=== PATIENT | male | born 1950 | race Caucasian/White ===

== ENCOUNTER 2016-07-30 15:16 | Emergency (ER) | payer OTHER ==
[2016-07-30 16:25] VITALS: BP 122/76
--- NOTE | 2016-07-30 17:13 | UC ---
Back Pain HPI - HPI Summary HPI Summary: 2 days ago bent over to pick something up and fell over. Was fine for several hours, then developed worsening low back pain that is much worse after sitting in one position for a long time. Denies numbness, tingling, weakness, or trouble with bowel/bladder. No hx of back sx. Has trouble getting comfortable. Is on long-term prednisone for giant cell arteritis. - History of Current Complaint Chief Complaint: UCBackPain Stated Complaint: BACK INJURY Time Seen by Provider: 07/30/16 16:58 Hx Obtained From: Patient Onset/Duration: Gradual Onset, Lasting Days Timing: Constant Severity Initially: Mild Severity Currently: Moderate Character: Dull, Aching Aggravating: Movement, Bending, Walking Alleviating: Rest Associated Signs And Symptoms: Negative: Fever, Weakness, Numbness, Tingling, Bladder Incontinence, Bowel Incontinence, Weight Loss - Allergies/Home Medications Allergies/Adverse Reactions: Allergies Allergy/AdvReac Type Severity Reaction Status Date / Time No Known Allergies Allergy Verified 01/14/14 13:51 PMH/Surg Hx/FS Hx/Imm Hx Cardiovascular History Of: Reports: Cardiac Disorders - high cholesterol - Surgical History Surgical History: None - Family History Known Family History: Positive: Cardiac Disease - Social History Occupation: Retired Alcohol Use: None Substance Use Type: None Smoking Status (MU): Never Smoked Tobacco Review of Systems Constitutional: Negative Skin: Negative Eyes: Negative ENT: Negative Respiratory: Negative Cardiovascular: Negative Gastrointestinal: Negative Genitourinary: Negative Motor: Negative Neurovascular: Negative Musculoskeletal: Myalgia - low back pain Neurological: Negative Psychological: Negative All Other Systems Reviewed And Are Negative: Yes Physical Exam Triage Information Reviewed: Yes Appearance: Well-Appearing, Pain Distress - mild Vital Signs: Initial Vital Signs Temp 98.1 F 07/30/16 16:18 Pulse 109 07/30/16 16:18 Resp 20 07/30/16 16:18 BP 122/76 07/30/16 16:18 Pulse Ox 97 07/30/16 16:18 Vital Signs Reviewed: Yes Eye Exam: Normal Eyes: Positive: Conjunctiva Clear ENT Exam: Normal ENT: Positive: Normal ENT inspection, Hearing grossly normal, Pharynx normal, TMs normal Dental Exam: Normal Neck exam: Normal Respiratory Exam: Normal Respiratory: Positive: Chest non-tender, Lungs clear, Normal breath sounds, No respiratory distress, No accessory muscle use Cardiovascular: Positive: No Murmur, Tachycardia Musculoskeletal: Positive: Strength Intact - full strength in BLE, ROM Intact - except back Neurological: Positive: Alert Psychological Exam: Normal Skin Exam: Normal Back Pain Course/Dx - Differential Dx/Diagnosis Provider Diagnoses: Low back strain Discharge - Discharge Plan Condition: Stable Disposition: HOME Prescriptions: HYDROcodone/ACETAMIN 5-325 MG* [[place] 5-325 TAB*] 1 tab PO Q6H PRN #12 tab MDD 4 PRN Reason: Pain Naproxen Sodium [Naproxen Sodium 500 MG TAB] 500 mg PO BID #10 tab Tizanidine HCl [Zanaflex] 2 mg PO TID PRN #30 cap PRN Reason: Pain Patient Education Materials: Low Back Strain (ED) Referrals: Wyatt Willis MD [Primary Care Provider] - 4 Days Additional Instructions: I expect time and rest to help your back improve. If you are not quickly getting back to normal, please see Dr. Willis to discuss further imaging or physical therapy.
[2016-07-30] MEDS ORDERED: Naproxen TAB* 250 MG PO ONE (17:36)
--- NOTE | 2016-07-30 17:41 | RAD ---
INDICATION: 2 days of low back pain after a fall COMPARISON: None. TECHNIQUE: 5 views of the lumbar spine were obtained. FINDINGS: The vertebra are in normal alignment. No fracture is seen. Degenerative changes of the lumbar spine include loss of intervertebral disc height and marginal osteophyte formation along the lower thoracic anterior vertebral bodies.. IMPRESSION: Multilevel degenerative changes of the lumbar spine as described above.
== END 2016-07-30 18:13 | disposition home or self-care (01) ==
LOC: UCEAST 15:16
DX: S39.012A Strain of muscle, fascia and tendon of lower back, initial encounter (principal); M31.6 Other giant cell arteritis; X50.9XXA Other and unspecified overexertion or strenuous movements or postures, initial encounter; E78.00 Pure hypercholesterolemia, unspecified; Z79.52 Long term (current) use of systemic steroids
CPT/HCPCS: 72110; 99212; A9270-GY; G0463

== ENCOUNTER 2016-10-26 07:51 | Inpatient (IN) | payer OTHER ==
[2016-10-26 08:33] LABS: Hematocrit 42 % (42-52); Mean Corpuscular HGB Conc 33 g/dl (31-36); Mean Corpuscular Hemoglobin 31 pg (27-31); Mean Corpuscular Volume 92 fL (80-94); Mean Platelet Volume 9 um3 (7.4-10.4); Red Cell Distribution Width 15 % (10.5-15); White Blood Count 15.1 10^3/ul (3.5-10.8)
[2016-10-26 08:49] LABS: Albumin 3.5 g/dL (3.2-5.2); BUN/Creatinine Ratio 18.7 (8-20); C Reactive Protein 49.66 mg/L (< 5.00); Calcium 9.7 mg/dL (8.6-10.3); EGFR African American 88.4 (>60); EGFR Non-African American 68.7 (>60); Globulin 2.5 g/dL (2-4); Potassium 3.8 mmol/L (3.5-5.0); Total Bilirubin 0.9 mg/dL (0.2-1.0)
[2016-10-26] MEDS ORDERED: Iohexol 350* (CONTRAST) 500 ML MDV IV ONE (08:57)
[2016-10-26 08:58] LABS: Troponin I 0.38 ng/mL (<0.04)
--- NOTE | 2016-10-26 09:52 | RAD ---
HISTORY: Shortness of breath COMPARISONS: February 07, 2016 VIEWS:1: Single frontal portable view of the chest at 9:34 AM FINDINGS: LINES AND TUBES: None. CARDIOMEDIASTINAL SILHOUETTE: The cardiomediastinal silhouette is normal for portable technique. PLEURA: The costophrenic angles are sharp. No pleural abnormalities are noted. LUNG PARENCHYMA: The lung volumes are low. The lungs are clear accounting for the phase of respiration. ABDOMEN: The upper abdomen is clear. There is no subphrenic gas. BONES AND SOFT TISSUES: No bone or soft tissue abnormalities are noted. IMPRESSION: LOW LUNG VOLUMES. NO ACTIVE CARDIOPULMONARY DISEASE.
--- NOTE | 2016-10-26 10:34 | RAD ---
Indication: Shortness of breath, tachycardia. Contrast: Administered 84.0 ml of Contrast -- mg/ml CTA of the chest was performed without IV contrast administration. Coronal and sagittal reconstructed images were obtained. There are filling defects in both main pulmonary arteries extending to the left upper lobe, left lower lobe, right lower lobe and right upper lobe pulmonary arteries. This is consistent with multiple pulmonary embolus. The trachea and major bronchi appear patent. The lung bases demonstrate atelectasis. No pleural fluid is identified. No mediastinal or hilar adenopathy is noted. The visualized abdominal organs are otherwise unremarkable. IMPRESSION: Large pulmonary emboli are noted bilaterally with extension into the left upper, left lower, right upper and right lower lobe pulmonary arteries extending into the respective segmental arteries. Findings discussed with Dr. Billy at 10:20 AM.
[2016-10-26] MEDS ORDERED: Enoxaparin(*) 100 MG/ML SYR SUBCUT ONE (10:37)
--- NOTE | 2016-10-26 13:21 | RAD ---
HISTORY: Left lower extremity edema COMPARISONS: None relevant TECHNIQUE: Multiple transverse and longitudinal ultrasound images were obtained of the left lower extremity from the level of the common femoral vein inferiorly through to the infrapopliteal veins using grayscale, color Doppler, and spectral Doppler imaging with and without compression and with augmentation. Comparison images were obtained of the contralateral common femoral vein. FINDINGS: VEINS: The inferior extent of the left femoral vein, popliteal vein, and peroneal vein are noncompressible. There is minimal flow noted on color Doppler imaging. The remainder of the venous system of the left lower extremity is compressible throughout its course, with normal flow on color Doppler imaging and normal response to augmentation on spectral Doppler imaging. SOFT TISSUES: Unremarkable. OTHER FINDINGS: None. IMPRESSION: OCCLUSIVE AND PARTIALLY OCCLUSIVE THROMBUS OF THE INFERIOR EXTENT OF THE LEFT FEMORAL VEIN, POPLITEAL VEIN, AND PERONEAL VEIN
--- NOTE | 2016-10-26 14:36 | HP ---
CC: Dr. Wyatt Willis. * HISTORY AND PHYSICAL: DATE OF ADMISSION: 10/26/16 PRIMARY CARE PROVIDER: Dr. Wyatt Willis. ATTENDING PHYSICIAN: Dr. Maryan Romero * (dictated by Sheeba Salguero NP). CHIEF COMPLAINT: Shortness of breath. HISTORY OF PRESENT ILLNESS: Mr. Michael is a 66-year-old male with past medical history significant for giant cell arteritis, polymyalgia rheumatica, L2 to L4 lumbar fracture, hypothyroidism, hyperlipidemia, and BPH who presents to the Emergency Room with complaints of shortness of breath. Patient states that in July he injured his back resulting in lumbar fractures. He states that he has not been able to get around as well since then due to the pain. He states that on 10/15/16 he traveled to [facility] in [facility], at which time he had been fitted for a Selby brace for his lumbar fractures. The patient has also noted that for a while he has had swelling in bilateral lower extremities that he contributes to being caused from his prednisone. The patient states yesterday he went to [employer] to get some compression stockings to help with swelling in his legs. He noticed that he got very short of breath with minimal exertion. He reports that when he walked into his house that he was gasping for air and feeling short of breath. The patient reports that he had a sudden onset yesterday, but he had noticed that he had gradually been having shortness of breath over the last few weeks. The patient denies any recent fever, chills, nausea, vomiting, diarrhea, urinary symptoms. He reports some irregularity in his bowel movements and feels he needs a stool softener. The patient also reports a mild chest pressure last night that has gone this morning and again he reports bilateral lower extremity edema for the last few months, always with the left side greater than the right side. Due to the significant shortness of breath he decided to present to the emergency room for evaluation of his symptoms. While in the emergency room the patient had labs that were remarkable for leukocytosis with a white blood cell count of 15.1. He had a D-dimer greater than 1050. He had a troponin 0.38. CRP 49.66. BMP of 426. He had an EKG showing a sinus tachycardia and a rate of 31. His EKG was similar to previous EKG with the exception that that EKG with a sinus rhythm. He had a chest x-ray showing a low lung volumes and no active cardiopulmonary disease. He had a chest CTA showing large bilateral PE. The patient was given an initial dose of subcu Lovenox and the hospitalists were called to evaluate the patient for admission. PAST MEDICAL HISTORY: 1. Giant cell arteritis. 2. L2 to L4 lumbar fracture. 3. Polymyalgia rheumatica. 4. Hypothyroidism. 5. Hyperlipidemia 6. BPH. PAST SURGICAL HISTORY: No past surgeries. HOME MEDICATIONS: Include: 1. Prednisone 45 mg oral daily. 2. Levothyroxine 175 mcg oral daily. 3. Atorvastatin 40 mg oral daily at bedtime, 4. Acetaminophen 650 mg oral as needed for pain. 5. Motrin 400 mg oral as needed for pain. ALLERGIES: No known drug allergies. FAMILY HISTORY: Patient reports his father passed at age 65 from a myocardial infarction, his paternal grandfather passed at age 66 from myocardial infarction and his paternal uncle passed at age 66 from a myocardial infarction. The patient believes that he may have a family history of diabetes mellitus, but he is unsure who has it in his family. The patient denies any family history of cancer. SOCIAL HISTORY: The patient denies tobacco, alcohol or recreational drug use. Patient's sister, Cassia Michael will be his surrogate decision maker in the event he is unable to make decisions for himself. REVIEW OF SYSTEMS: I performed a 14-point review of systems. All the pertinent positives and negatives are mentioned in the history of present illness. The remaining review of systems are negative. PHYSICAL EXAMINATION GENERAL APPEARANCE: The patient is alert, pleasant, appears to be in no acute distress. VITAL SIGNS: Temperature 98.5, heart rate 125, respiratory rate 20, O2 sat 96% on 5 L via nasal cannula, blood pressure 123/85. HEENT: Normocephalic, atraumatic. Pupils are equal and reactive to light. Extraocular movements are intact. RESPIRATORY: There is no accessory muscle use and lungs are clear to auscultation bilateral. CARDIOVASCULAR: Regular rate and rhythm. S1 and S2 present. There are no murmurs, rubs or gallops heard. ABDOMEN: Soft, nontender, and nondistended. There are bowel sounds present x4. EXTREMITIES: There is trace to 1+ right lower extremity edema and 2 to 3+ left lower extremity edema. MUSCULOSKELETAL: There is no clubbing or cyanosis noted. The patient exhibits good strength in all extremities. NEUROLOGICAL: The patient is alert and oriented x4. Cranial nerves II through XII are grossly intact. PSYCHOLOGICAL: The patient is calm and cooperative. SKIN: There are no rashes or abnormalities seen. DIAGNOSTIC STUDIES/LABORATORY DATA: Sodium 140, potassium 3.8, chloride 105, CO2 27, BUN 20, creatinine 1.07, glucose 110. White blood cell count 15.1, hemoglobin 14.0, hematocrit 42, and platelets 133. D-dimer grater than 1050, troponin 0.38, CRP 49.66, BNP 426. EKG shows a sinus tachycardia with a rate of 131. There are no acute signs of ischemia noted. This EKG is similar to previous EKG from 02/07/16 with the exception of that previous EKG with sinus rhythm. 1. Chest x-ray from today. Radiologist's impression: Low lung volumes. No active cardiopulmonary disease. 2. Chest CTA from today. Radiologist's impression: Large PE bilateral with extension into left lower, right upper pulmonary artery extending into the respective segmental arteries. IMPRESSION: Mr. Michael is a 66-year-old male with past medical history significant for giant cell arteritis, L2 to 4 lumbar fracture, polymyalgia rheumatica, hypothyroidism, hyperlipidemia and benign prostatic hypertrophy who presents to the emergency room with complaints of shortness of breath and was found to have bilateral pulmonary embolus. He will be admitted on observation for pulmonary embolus. ASSESSMENT/PLAN: 1. Shortness of breath. I suspect the patient's shortness of breath is related to a pulmonary embolus. He has been started on Lovenox b.i.d. We will get an echocardiogram to evaluate for right heart strain. The patient will be monitored on telemetry, we will trend his troponins. We will also check a left lower extremity venous ultrasound as his left leg is more edematous than his right leg to eval for a DVT. It was discussed with the patient his options for oral anticoagulation of warfarin, Eliquis, or Xarelto. The patient will consider his options and will decide on an oral anticoagulant tomorrow. 2. Elevated troponins. I suspect this is secondary to demand ischemia from the patient's pulmonary embolus. We will trend his troponins and monitor him on telemetry. He is currently denying chest discomfort. 3. Left lower extremity edema. We will get a venous Doppler of the left lower extremity to evaluate for the possibility of a DVT in the left leg. 4. Giant cell arteritis and polymyalgia rheumatica. The patient will be continued on his current prednisone. He reports decreasing his prednisone down over the last month, he is currently on 45 mg daily. 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 5. Hypothyroidism. The patient will be continued on his home levothyroxine. 6. L2-4 lumbar fracture. We will provide supportive care and pain medication. The patient currently takes acetaminophen and Motrin at home for his back pain. 7. Fluids, electrolytes, nutrition. Regular diet. 8. Code status. Full code. 9. DVT prophylaxis. The patient is at highest risk and we will have Lovenox. DISPOSITION: Observation. TIME SPENT: Time for this admission was approximately 60 minutes and greater than half of that was spent with the patient discussing medications, past medical history, and the events leading up to his arrival today, and performing a physical examination. The case has been reviewed with the attending, Dr. Romero, who agrees with the plan of care. Reviewed by EMELIA FISHER 10/27/16 1156 [id number]/[facility] #: [id number] [place]
[2016-10-26] MEDS ORDERED: Magnesium Hydroxide LIQ* 30 ML UDC PO PRN (15:16)
[2016-10-26] MEDS ORDERED: Polyethylene Glycol 3350* 17 GM PACKET PO PRN (15:16)
[2016-10-26 16:09] LABS: Urine Bilirubin Negative (Negative); Urine Glucose Negative (Negative); Urine Nitrite Negative (Negative)
[2016-10-26] MEDS: Acetaminophen TAB* 325 MG PO PRN ×2 (16:44→21:41)
--- NOTE | 2016-10-26 18:03 | ECHO ---
Patient: Juany RAMOS [facility] Rec#: [id number] : 1950 Date: 10/26/2016 Age: 66y Height: 187.96 cm / 74.0 in Weight: 107.95 kg / 237.9 lbs Sex: M BSA: 2.34 Room#: 434 Admit Date#: 10/26/2016 Type: Inpatient Referring: Sheeba Landaverde NP Reading: Leena Glover MD Freight Associate: Sheeba Healy RDCS CC: Wyatt Willis MD Transthoracic Echocardiogram Indication: Pulmonary Embolism BP: 123/85 HR: 122 Rhythm: Tachycardia Findings History: HLD, back fracture. Technical Comments: The study quality is fair. The study is technically limited due to patient body habitus. Completed at 1515. Left Ventricle: The left ventricular chamber size is normal. Moderate concentric left ventricular hypertrophy is observed. There are multiple regional wall motion abnormalities. There is mildly decreased left ventricular systolic function. The estimated ejection fraction is 45-50%. There is septal flattening of the interventricular septum consistent with right ventricular volume or pressure overload. There is no consistent Doppler evidence of clinically significant diastolic dysfunction. Left Atrium: The left atrium is mildly dilated. Right Ventricle: The right ventricle is moderately dilated. The right ventricular global systolic function is moderately reduced. Right Atrium: The right atrium is mildly dilated. Aortic Valve: The aortic valve is trileaflet. The aortic valve leaflets are mildly thickened. There is no evidence of aortic regurgitation. There is no evidence of aortic stenosis. Mitral Valve: There is mitral annular calcification. The mitral valve leaflets are mildly thickened. There is mild to moderate mitral regurgitation. There is no evidence of mitral stenosis. Tricuspid Valve: The tricuspid valve leaflets are normal. There is moderate tricuspid regurgitation. The right ventricular systolic pressure is estimated at 45 mmHg. There is evidence of mild to moderate pulmonary hypertension. There is no tricuspid stenosis. Pulmonic Valve: The pulmonic valve appears normal. There is trace to mild pulmonic regurgitation. There is no pulmonic stenosis. Pericardium: There is no significant pericardial effusion. There are no signs of significant hemodynamic compromise. A pericardial fat pad is visualized. Aorta: There is mild dilatation of the ascending aorta. There is no dilatation of the aortic arch. There is moderate dilatation of the aortic root. Pulmonary Artery: The main pulmonary artery appears normal. Venous: The venous system is not well visualized. Summary: There was not any prior study for comparison. Conclusions The study is technically limited due to patient body habitus. Completed at 1515. Moderate concentric left ventricular hypertrophy is observed. There is septal flattening of the interventricular septum consistent with right ventricular volume or pressure overload. The estimated ejection fraction is 45-50%. The left atrium is mildly dilated. The right ventricle is moderately dilated. The right ventricular global systolic function is moderately reduced. The right atrium is mildly dilated. There is mild to moderate mitral regurgitation. There is moderate tricuspid regurgitation. There is evidence of mild to moderate pulmonary hypertension. There is trace to mild pulmonic regurgitation. There is mild dilatation of the ascending aorta. There is moderate dilatation of the aortic root. Measurements Name Value Normal Range RVIDd (AP) 2D 3.5 cm (0.9 - 2.6) RVDdMajor (2D) 5.3 cm (2.2 - 4.4) RAd ISD 4CH 5.5 cm (3.4 - 4.9) RA (A4C)W 4.2 cm (2.9 - 4.6) IVSd (2D) 1.6 cm (0.6 - 1) LVPWd (2D) 1.5 cm (0.6 - 1) LVIDd (2D) 4.3 cm (3.6 - 5.4) LVIDs (2D) 3.7 cm - LV FS (2D) 14 % (25 - 45) Aortic Annulus 2.9 cm (1.4 - 2.6) Ao root diameter (2D) 4.26 cm (2.1 - 3.5) Ascending Ao 3.7 cm (2.1 - 3.4) Aortic arch 3.1 cm (1.8 - 3.4) LA dimension (AP) 2D 4 cm (2.3 - 3.8) LAd ISD 4CH 5.6 cm (2.9 - 5.3) LA ISD 4CH W 4.9 cm (2.5 - 4.5) Name Value Normal Range LA ESV SP 4CH (A/L) 45 ml - LA ESV SP 2CH (A/L) 57 ml - LA ESV BP (A/L) 53 ml - LA ESV BP (A/L) index 22.76 ml/m2 - LA ESV SP 4CH (MOD) 44 ml - LA ESV SP 2CH (MOD) 57 ml - Name Value Normal Range MV E-wave Vmax 0.35 m/sec - MV deceleration time 186.57 msec - MV A-wave Vmax 0.64 m/sec - MV E:A ratio 0.55 ratio - LV septal e' Vmax 0.07 m/sec - LV lateral e' Vmax 0.1 m/sec - LV E:e' septal ratio 5 ratio - LV E:e' lateral ratio 3.5 ratio - Name Value Normal Range AV Vmax 1.12 m/sec - AV VTI 15.5 cm - AV peak gradient 5.02 mmHg - AV mean gradient 3.17 mmHg - LVOT Vmax 0.79 m/sec - LVOT VTI 11.74 cm - LVOT peak gradient 2.48 mmHg - LVOT mean gradient 1.3 mmHg - NAT Vmax 0.51 m/sec - Name Value Normal Range TR Vmax 3.05 m/sec - TR peak gradient 37 mmHg - RAP 8 mmHg - RVSP 45 mmHg - Name Value Normal Range PV Vmax 0.58 m/sec - PV peak gradient 1.34 mmHg -
--- NOTE | 2016-10-26 18:34 | ED ---
Scott Iglesias Angela, scribed for Mihai Billy MD on 10/26/16 at 0818 . Shortness of Breath - HPI Summary HPI Summary: Pt is a 66 y/o male presenting to [facility] c/o SOB with dyspnea on exertion since yesterday. Pt reports that he was gasping for air with minimal exertion, walking out of [employer]. He notes that last night he would gasp for air every 3 seconds. Pt denies fever, chills, chest pain, abd pain. He endorses traveling to [facility] 4 days ago. Pt states his ankles are swollen due to prednisone (for giant cell arteritis). Pt notes a PMHx of thyroid disease and high cholesterol. - History of Current Complaint Chief Complaint: EDDysrhythmPalp Time Seen by Provider: 10/26/16 08:04 Hx Obtained From: Patient Aggrevating Factors: Nothing Alleviating Factors: Nothing - Allergy/Home Medications Allergies/Adverse Reactions: Allergies Allergy/AdvReac Type Severity Reaction Status Date / Time No Known Allergies Allergy Verified 01/14/14 13:51 Home Medications: Home Medications Atorvastatin* [Lipitor*] 40 mg PO DAILY 10/26/16 [History Confirmed 10/26/16] Levothyroxine TAB* [Synthroid TAB*] 175 mcg PO DAILY 10/26/16 [History Confirmed 10/26/16] predniSONE TAB* [Deltasone TAB*] 45 mg PO DAILY 10/26/16 [History Confirmed ] PMH/Surg Hx/FS Hx/Imm Hx Endocrine/Hematology History: Reports: Hx Thyroid Disease Musculoskeletal History: Reports: Other Musculoskeletal History - Pt notes he has a lumbar fracture of L3 and L4 since July. Denies: Hx Rheumatoid Arthritis, Hx Osteoporosis, Hx Scoliosis Neurological History: Denies: Hx Headaches Infectious Disease History: No Infectious Disease History: Denies: Traveled Outside the [place] in Last 30 Days - Family History Known Family History: Positive: Cardiac Disease - Social History Alcohol Use: None Substance Use Type: Reports: None Smoking Status (MU): Never Smoked Tobacco Review of Systems Negative: Fever, Chills Positive: Shortness Of Breath All Other Systems Reviewed And Are Negative: Yes Physical Exam - Summary Physical Exam Summary: VITAL SIGNS: Reviewed. GENERAL: Patient is a well-developed and nourished male who is lying comfortable in the stretcher. Patient seems to be very dry. HEAD AND FACE: No signs of trauma. No ecchymosis, hematomas or skull depressions. No sinus tenderness. EYES: PERRLA, EOMI x 2, No injected conjunctiva, no nystagmus. EARS: Hearing grossly intact. Ear canals and tympanic membranes are within normal limits. MOUTH: Oropharynx within normal limits. Pt has a dry oral mucosa. NECK: Supple, trachea is midline, no adenopathy, no JVD, no carotid bruit, no c- spine tenderness, neck with full ROM. CHEST: Symmetric, no tenderness at palpation LUNGS: Clear to auscultation bilaterally. No wheezing or crackles. CVS: Pt is tachycardic, S1 and S2 present, no murmurs or gallops appreciated. ABDOMEN: Soft, non-tender. No signs of distention. No rebound no guarding, and no masses palpated. Bowel sounds are normal. EXTREMITIES: FROM in all major joints, no cyanosis or clubbing. Pt has bilateral ankle edema 2+. NEURO: Alert and oriented x 3. No acute neurological deficits. Speech is normal and follows commands. SKIN: Dry and warm Triage Information Reviewed: Yes Vital Signs On Initial Exam: Initial Vitals Temp Pulse Resp Pulse Ox 98.8 F 135 20 94 10/26/16 07:53 10/26/16 07:53 10/26/16 07:53 10/26/16 07:53 Vital Signs Reviewed: Yes - [place] Coma Scale Coma Scale Total: 15 Diagnostics - Vital Signs Vital Signs Temp Pulse Resp BP Pulse Ox 10/26/16 07:56 98.5 F 133 20 90/75 89 10/26/16 07:53 98.8 F 135 20 94 - Laboratory Result Diagrams: 10/26/16 08:20 10/26/16 08:20 Lab Statement: Any lab studies that have been ordered have been reviewed, and results considered in the medical decision making process. - Radiology Chest XR Xray Interpretation: No Acute Changes - IMPRESSION: Low lung volumes. No active cardiopulmonary disease. Radiology Interpretation Completed By: Radiologist - CT CTA Chest CT Interpretation: Positive (See Comments) - IMPRESSION: Large pulmonary emboli are noted bilaterally with extension into the left upper, left lower, right upper and right lower lobe pulmonary arteries extending into the respective segmental arteries. CT Interpretation Completed By: Radiologist - EKG 7:59 Cardiac Rate: Tachycardia - 131 bpm EKG Rhythm: Sinus Rhythm ST Segment: Normal EKG Interpretation: No ST elevations Course/Dx - Course Course Of Treatment: Pt is a 66 y/o male presenting to [facility] c/o SOB with dyspnea on exertion since yesterday. Pt reports that he was gasping for air with minimal exertion, walking out of [employer]. He notes that last night he would gasp for air every 3 seconds. Pt denies fever, chills, chest pain, abd pain. He endorses traveling to [facility] 4 days ago. Pt states his ankles are swollen due to prednisone (for giant cell arteritis). Pt notes a PMHx of thyroid disease and high cholesterol. Test results without any significant abnormalities , except for WBC of 15.1, platelets of 133, no band, D-dimer of more than 1050, glucose of 110, troponin of 0.38, CRP 49.6, BNP of 423. Pt's situation is of no acute pathology. I decided to do a CTA dince the pt is hypoxic, hypotensive, and we need to rule out a PE. CTA results show a large pulmonary emboli are noted bilaterally with extension into the left upper, left lower, right upper and right lower lobe pulmonary arteries extending into the respective segmental arteries. EKG shows sinus tachycardia at [address] elevations. In the ED course the pt is stable and was hydrated. He was given Lovenox to treat the pulmonary emboli. The elevated troponin is likely due to PE, however we still have to rule out acute coronary syndrome. I discussed the case with Dr. Romero from the hospitalist service who accepted the pt for admission. The pt is feeling better, however he is still tachycardic at rate of 113. Otherwise, the pt is stable. - Diagnoses Provider Diagnoses: Pulmonary embolism, Increased troponin, Rule out acute coronary syndrome - Physician Notifications Discussed Care of Patient With: Maryan Romero Time Discussed With Above Provider: 10:34 Instructed by Provider To: Other - Discussed the pt's case with Dr. Romero. She will admit the pt. Discharge - Discharge Plan Condition: Stable Disposition: ADMITTED TO [facility] The documentation as recorded by the Scott mc Angela accurately reflects the service I personally performed and the decisions made by me, Mihai Billy MD.
[2016-10-26] MEDS: Enoxaparin(*) 150 MG/ML 1 ML SYRINGE SUBCUT SCH (21:41)
[2016-10-27] MEDS: Acetaminophen TAB* 325 MG PO PRN (03:46)
[2016-10-27] MEDS ORDERED: oxyCODONE TAB* 5 MG TAB PO PRN (03:57)
[2016-10-27 05:14] LABS: Hematocrit 40 % (42-52); Hemoglobin 13.4 g/dl (14.0-18.0); Mean Corpuscular HGB Conc 33 g/dl (31-36); Mean Corpuscular Hemoglobin 31 pg (27-31); Mean Corpuscular Volume 93 fL (80-94); Mean Platelet Volume 8 um3 (7.4-10.4); Red Blood Count 4.36 10^6/ul (4.0-5.4); Red Cell Distribution Width 16 % (10.5-15); White Blood Count 9.4 10^3/ul (3.5-10.8)
[2016-10-27 05:16] LABS: Add Diff/Slide Review? Slide Review Added; Comments Flag Yes
[2016-10-27] MEDS: Levothyroxine TAB* 175 MCG TAB PO SCH (06:22)
[2016-10-27] MEDS: Atorvastatin* 40 MG TAB PO SCH (08:54)
[2016-10-27] MEDS: predniSONE TAB* 20 MG PO SCH (08:54)
[2016-10-27] MEDS: predniSONE TAB* 5 MG PO SCH (08:54)
[2016-10-27] MEDS: Enoxaparin(*) 150 MG/ML 1 ML SYRINGE SUBCUT SCH (08:54)
--- NOTE | 2016-10-27 11:26 | PN ---
Subjective Date of Service: 10/27/16 Interval History: Patient seen this morning. No SOB at rest, felt that he had to take a few extra breaths when going to the bathroom and back. Did endorse waking up gasping for breath a number of times overnight and this AM, O2 sats have been stable on 2L NC. Had long discussion with patient about medication options, prognosis, length of therapy. Patient had a number of questions, all of which were answered. Family History: Unchanged from Admission Social History: Unchanged from Admission Past Medical History: Unchanged from Admission Objective Active Medications: Acetaminophen (Tylenol Tab*) 650 mg PO Q4H PRN Atorvastatin Calcium (Lipitor*) 40 mg PO DAILY [facility]DA Docusate Sodium (Colace Cap*) 100 mg PO BID PRN Enoxaparin Sodium (Lovenox(*)) 110 mg SUBCUT BID MAYDA Levothyroxine Sodium (Synthroid Tab*) 175 mcg PO 0600 [facility]DA Magnesium Hydroxide (Milk Of Magnesia Liq*) 30 ml PO Q6H PRN Oxycodone HCl (Roxycodone Tab*) 5 mg PO Q4H PRN Polyethylene Glycol/Electrolytes (Miralax*) 17 gm PO DAILY PRN Prednisone (Deltasone Tab*) 40 mg PO DAILY MAYDA Prednisone (Deltasone Tab*) 5 mg PO DAILY [facility]DA Vital Signs 10/26/16 10/26/16 10/26/16 11:30 11:45 12:00 Temperature Pulse Rate 123 125 123 Respiratory 19 18 21 Rate Blood Pressure 106/63 123/77 110/70 (mmHg) O2 Sat by Pulse 97 96 95 Oximetry 10/26/16 10/26/16 10/26/16 13:00 13:17 13:53 Temperature 97.2 F 97.2 F Pulse Rate 126 125 125 Respiratory 20 20 Rate Blood Pressure 124/91 124/91 (mmHg) O2 Sat by Pulse 94 94 95 Oximetry 10/27/16 07:40 Temperature 97.4 F Pulse Rate 101 Respiratory 16 Rate Blood Pressure 123/79 (mmHg) O2 Sat by Pulse 94 Oximetry Oxygen Devices in Use Now: Nasal Cannula - 2L Appearance: Middle-aged, M, laying in bed in NAD Eyes: No Scleral Icterus Ears/Nose/Mouth/Throat: Mucous Membranes Moist Neck: NL Appearance and Movements; NL JVP Respiratory: Symmetrical Chest Expansion and Respiratory Effort, - - Trace scattered wheezing, otherwise clear Cardiovascular: NL Sounds; No Murmurs; No JVD, - - Tachycardia Abdominal: NL Sounds; No Tenderness; No Distention Lymphatic: No Cervical Adenopathy Extremities: - - LLE edema Skin: No Rash or Ulcers Neurological: Alert and Oriented x 3 Result Diagrams: 10/27/16 04:54 10/26/16 08:20 Assess/Plan/Problems-Billing Assessment: B/L pulmonary emboli, LLE DVT in a 66 yo M with hx of GCA, PMR, L2-L4 lumbar fx , hypothyroidism, BPH - Patient Problems (1) Pulmonary emboli Current Visit: Yes Comment: B/L, LLE DVT. Echo shows evidence of R heart strain, has mild troponin elevation. Discussed options with the patient and will start Xarelto this evening. Continue O2 as needed, wean. Will ambulate throughout the day today. (2) Gasping for breath Current Visit: Yes Comment: Happens while sleeping. Will order overnight pulse ox to evaluate for possible underlying apnea. (3) Giant cell arteritis Current Visit: Yes Comment: Continue outpatient Prednisone 45 mg daily (4) Hypothyroidism Current Visit: Yes Comment: Continue home synthroid (5) DVT prophylaxis Current Visit: Yes Comment: Xarelto Counseling and/or Coordination of Care Minutes: >50 minutes with over 50% spent on counseling and coordination of care
[2016-10-27] MEDS: Rivaroxaban TAB(*) 15 MG PO SCH (22:01)
[2016-10-28] MEDS: Levothyroxine TAB* 175 MCG TAB PO SCH (05:05)
[2016-10-28] MEDS: Docusate CAP* 100 MG PO PRN (09:02)
[2016-10-28] MEDS: predniSONE TAB* 20 MG PO SCH (09:03)
[2016-10-28] MEDS: predniSONE TAB* 5 MG PO SCH (09:03)
[2016-10-28] MEDS: Atorvastatin* 40 MG TAB PO SCH (09:05)
[2016-10-28] MEDS: Acetaminophen TAB* 325 MG PO PRN (09:07)
[2016-10-28] MEDS: Rivaroxaban TAB(*) 15 MG PO SCH ×2 (09:07→20:14)
--- NOTE | 2016-10-28 11:53 | PN ---
Subjective Date of Service: 10/28/16 Interval History: Patient seen this morning. Feeling better today, denied any sensation of gasping for air while sleeping but did state he was interrupted a number of times with the overnight pulse ox. Feels that he has difficult getting from sitting to standing due to back pain but denies much SOB with ambulation. Family History: Unchanged from Admission Social History: Unchanged from Admission Past Medical History: Unchanged from Admission Objective Active Medications: Acetaminophen (Tylenol Tab*) 650 mg PO Q4H PRN Atorvastatin Calcium (Lipitor*) 40 mg PO DAILY MAYDA Docusate Sodium (Colace Cap*) 100 mg PO BID PRN Levothyroxine Sodium (Synthroid Tab*) 175 mcg PO 0600 MAYDA Magnesium Hydroxide (Milk Of Magnesia Liq*) 30 ml PO Q6H PRN Oxycodone HCl (Roxycodone Tab*) 5 mg PO Q4H PRN Polyethylene Glycol/Electrolytes (Miralax*) 17 gm PO DAILY PRN Prednisone (Deltasone Tab*) 40 mg PO DAILY MAYDA Prednisone (Deltasone Tab*) 5 mg PO DAILY MAYDA Rivaroxaban (Xarelto(*)) 15 mg PO BID [facility] Vital Signs 10/27/16 10/27/16 10/27/16 15:34 20:00 20:04 Temperature 98.0 F 97.6 F Pulse Rate 105 110 Respiratory 24 16 16 Rate Blood Pressure 102/80 108/77 (mmHg) O2 Sat by Pulse 92 90 Oximetry 10/27/16 10/28/16 10/28/16 22:05 00:02 03:48 Temperature 97.3 F 97.9 F Pulse Rate 106 108 Respiratory 16 20 Rate Blood Pressure 134/88 145/95 (mmHg) O2 Sat by Pulse 88 95 94 Oximetry 10/28/16 10/28/16 06:50 07:33 Temperature 97.9 F 97.5 F Pulse Rate 108 93 Respiratory 20 16 Rate Blood Pressure 136/62 134/72 (mmHg) O2 Sat by Pulse 98 96 Oximetry Oxygen Devices in Use Now: Nasal Cannula - 2L Appearance: Middle-aged, M, sitting in chair in NAD Eyes: No Scleral Icterus Ears/Nose/Mouth/Throat: Mucous Membranes Moist Neck: NL Appearance and Movements; NL JVP Respiratory: Symmetrical Chest Expansion and Respiratory Effort, Clear to Auscultation Cardiovascular: NL Sounds; No Murmurs; No JVD, RRR Abdominal: NL Sounds; No Tenderness; No Distention Lymphatic: No Cervical Adenopathy Extremities: - - LLE edema Skin: No Rash or Ulcers Neurological: Alert and Oriented x 3 Result Diagrams: 10/27/16 04:54 10/26/16 08:20 Assess/Plan/Problems-Billing Assessment: B/L pulmonary emboli, LLE DVT in a 66 yo M with hx of GCA, PMR, L2-L4 lumbar fx , hypothyroidism, BPH - Patient Problems (1) Pulmonary emboli Current Visit: Yes Comment: B/L, LLE DVT. Echo shows evidence of R heart strain, has mild troponin elevation. Continue Xarelto. HRs have been gradually improving. Will ambulate again today on/off O2 and monitor HR. (2) Gasping for breath Current Visit: Yes Comment: Patient reports improvement in symptoms with O2 overnight, however did have desaturations. May have some sleep apnea, should get outpatient sleep study. Will plan to discharge with nocturnal O2 (3) Giant cell arteritis Current Visit: Yes Comment: Continue outpatient Prednisone 45 mg daily (4) Hypothyroidism Current Visit: Yes Comment: Continue home synthroid (5) DVT prophylaxis Current Visit: Yes Comment: Xarelto
[2016-10-29] MEDS: Levothyroxine TAB* 175 MCG TAB PO SCH (06:51)
[2016-10-29] MEDS: predniSONE TAB* 20 MG PO SCH (08:02)
[2016-10-29] MEDS: predniSONE TAB* 5 MG PO SCH (08:03)
[2016-10-29] MEDS: Rivaroxaban TAB(*) 15 MG PO SCH (08:03)
[2016-10-29] MEDS: Atorvastatin* 40 MG TAB PO SCH (08:03)
[2016-10-29] MEDS: Docusate CAP* 100 MG PO PRN (08:04)
--- NOTE | 2016-10-29 10:56 | PN ---
Subjective Date of Service: 10/29/16 Interval History: Patient seen this morning. Feeling well. Ambulated on the stairs last night with no issues, maintained O2 sats on RA. No air hunger overnight. On exam, RRR, s1 and s2 present, no m/g/r, lungs CTA B/L, no w/r/r Will discharge patient today on Xarelto. All questions answered. Has PCP f/u today. Family History: Unchanged from Admission Social History: Unchanged from Admission Past Medical History: Unchanged from Admission Objective Active Medications: Acetaminophen (Tylenol Tab*) 650 mg PO Q4H PRN PRN Reason: FEVER/PAIN Last Admin: 10/27/16 03:46 Dose: 650 mg Atorvastatin Calcium (Lipitor*) 40 mg PO DAILY [facility] Last Admin: 10/29/16 08:03 Dose: 40 mg Docusate Sodium (Colace Cap*) 100 mg PO BID PRN PRN Reason: CONSTIPATION Last Admin: 10/29/16 08:04 Dose: 100 mg Levothyroxine Sodium (Synthroid Tab*) 175 mcg PO 0600 [facility] Last Admin: 10/29/16 06:51 Dose: 175 mcg Magnesium Hydroxide (Milk Of Magnesia Liq*) 30 ml PO Q6H PRN PRN Reason: CONSTIPATION Oxycodone HCl (Roxycodone Tab*) 5 mg PO Q4H PRN PRN Reason: PAIN - MODERATE Polyethylene Glycol/Electrolytes (Miralax*) 17 gm PO DAILY PRN PRN Reason: CONSTIPATION Prednisone (Deltasone Tab*) 40 mg PO DAILY [facility] Last Admin: 10/29/16 08:02 Dose: 40 mg Prednisone (Deltasone Tab*) 5 mg PO DAILY [facility] Last Admin: 10/29/16 08:03 Dose: 5 mg Rivaroxaban (Xarelto(*)) 15 mg PO BID [facility] Last Admin: 10/29/16 08:03 Dose: 15 mg Vital Signs 10/28/16 10/28/16 10/28/16 11:16 15:40 19:09 Temperature 98.3 F 97.3 F 97.9 F Pulse Rate 96 102 103 Respiratory 20 16 24 Rate Blood Pressure 104/80 122/84 137/87 (mmHg) O2 Sat by Pulse 95 95 96 Oximetry 10/28/16 10/28/16 10/29/16 20:00 23:41 02:39 Temperature 97.9 F 97.4 F Pulse Rate 93 84 Respiratory 24 16 20 Rate Blood Pressure 126/65 141/78 (mmHg) O2 Sat by Pulse 96 93 Oximetry 10/29/16 07:27 Temperature 97.4 F Pulse Rate 86 Respiratory 20 Rate Blood Pressure 139/83 (mmHg) O2 Sat by Pulse 95 Oximetry Oxygen Devices in Use Now: Nasal Cannula - 2L Result Diagrams: 10/27/16 04:54 10/26/16 08:20 Assess/Plan/Problems-Billing Assessment: B/L pulmonary emboli, LLE DVT in a 66 yo M with hx of GCA, PMR, L2-L4 lumbar fx , hypothyroidism, BPH - Patient Problems (1) Pulmonary emboli Current Visit: Yes Comment: B/L, LLE DVT. Echo shows evidence of R heart strain, has mild troponin elevation. Continue Xarelto. HRs have been gradually improving. Will ambulate again today on/off O2 and monitor HR. (2) Gasping for breath Current Visit: Yes Comment: Patient reports improvement in symptoms with O2 overnight, however did have desaturations. May have some sleep apnea, should get outpatient sleep study. Will plan to discharge with nocturnal O2 (3) Giant cell arteritis Current Visit: Yes Comment: Continue outpatient Prednisone 45 mg daily (4) Hypothyroidism Current Visit: Yes Comment: Continue home synthroid (5) DVT prophylaxis Current Visit: Yes Comment: Xarelto
[2016-10-29 12:04] VITALS: BP 111/72
--- NOTE | 2016-10-30 02:34 | DS ---
CC: Dr. Willis * DISCHARGE SUMMARY: DATE OF ADMISSION: 10/26/16 DATE OF DISCHARGE: 10/29/16 PRIMARY CARE PHYSICIAN: Dr. Willis. PRINCIPAL DISCHARGE DIAGNOSIS: Pulmonary embolism bilaterally, left lower extremity deep venous thrombosis. SECONDARY DIAGNOSES: 1. Giant cell arteritis, on prednisone. 2. L2-L4 lumbar fracture. 3. Hypothyroidism. 4. Hyperlipidemia. 5. Benign prostatic hyperplasia. DISCHARGE MEDICATION REGIMEN: 1. Xarelto 15 mg by mouth 2 times daily for 3 weeks and then 20 mg by mouth daily. 2. Atorvastatin 40 mg by mouth daily. 3. Synthroid 175 mcg by mouth daily. 4. Prednisone 45 mg by mouth daily. STUDIES DONE DURING HOSPITALIZATION: CT of the chest, impression: Large pulmonary emboli are noted bilaterally with extension into the left upper and left lower, right upper and right lower pulmonary arteries extending into the respective segmental arteries. Chest x-ray, impression: Low lung volumes. No active cardiopulmonary disease. Transthoracic echocardiogram, conclusion: This study is technically limited due to the patient's body habitus. Moderate concentric LVH is observed. There is septal flattening of the interventricular septum consistent with ventricular volume or pressure overload. Estimated ejection fraction of 45% to 50%. Left atrium is mildly dilated. The right ventricle is moderately dilated. Right ventricular systolic function is moderately reduced, right atrium is mildly dilated, mild-to- moderate right mitral regurgitation, moderate tricuspid regurgitation, evidence of [id number] pulmonary hypertension, trace to mild pulmonic regurgitation, mild dilatation of the ascending aorta, moderate dilatation of the aortic root. Left lower extremity Doppler, impression: Partially occlusive thrombus of the inferior extent of the left femoral vein, popliteal vein, and peroneal vein. HISTORY OF PRESENT ILLNESS/ HOSPITAL SUMMARY: Please see the full history and physical by Sheeba Dickey NP for full details. Briefly, Mr. Michael is a 66-year-old man with a past medical history as above, who presented to the hospital with progressive shortness of breath and left lower extremity swelling. It seems that the swelling has been going on for some time; however, the shortness of breath seemed to progress significantly over the days prior to admission. As noted above, the patient was diagnosed with bilateral pulmonary emboli and left lower extremity DVT. The patient had evidence of heart strain on his echocardiogram and had a mild troponin elevation which peaked at 0.38. The patient also had a B-natriuretic peptide of 423. The patient was significantly tachycardic on admission in the 130s; however, he did not require any more than 2 L of oxygen, which we were eventually being able to be weaned off. The patient was treated initially with subcu Lovenox and then the decision was made to switch to oral Xarelto. The patient was monitored in the hospital for a few additional days until his tachycardia improved and his oxygen was able to be weaned off. He did not require supplemental oxygen with ambulation; however , the patient did report some symptoms of gasping for air on his first night here in the hospital. Overnight pulse oximetry demonstrated some overnight desaturations. He will be sent home with home oxygen and should be referred for a sleep study. The patient had a number of questions about his anticoagulation and the duration. I stated that he should follow up with Dr. Willis and if the patient prefers to see a setter induction heating equipment, I am sure Dr. Willis will be happy to refer him to someone. TIME SPENT: Total time spent on this discharge, 50 minutes. This is a summary of the hospitalization. Please see the full medical record for further details. [id number] #: [id number] MTDD
== END 2016-10-29 13:42 | disposition home or self-care (01) | DRG 176 ==
LOC: ED 07:51 → MEDTELE 11:24 → OBSVTOIN 10-27 14:25
PROVIDERS: ADMIT Hospitalist; ATTEND Hospitalist
DX: I26.99 Other pulmonary embolism without acute cor pulmonale (principal); S32.029A Unspecified fracture of second lumbar vertebra, initial encounter for closed fracture; I27.2 Other secondary pulmonary hypertension; I95.9 Hypotension, unspecified; M31.5 Giant cell arteritis with polymyalgia rheumatica; M31.6 Other giant cell arteritis; S32.039A Unspecified fracture of third lumbar vertebra, initial encounter for closed fracture; S32.049A Unspecified fracture of fourth lumbar vertebra, initial encounter for closed fracture; I82.412 Acute embolism and thrombosis of left femoral vein; I82.432 Acute embolism and thrombosis of left popliteal vein; I82.492 Acute embolism and thrombosis of other specified deep vein of left lower extremity; E78.00 Pure hypercholesterolemia, unspecified; R40.2412 Glasgow coma scale score 13-15, at arrival to emergency department; R09.02 Hypoxemia; E03.9 Hypothyroidism, unspecified; E78.5 Hyperlipidemia, unspecified; N40.0 Benign prostatic hyperplasia without lower urinary tract symptoms; I77.819 Aortic ectasia, unspecified site; R74.8 Abnormal levels of other serum enzymes; R09.89 Other specified symptoms and signs involving the circulatory and respiratory systems; I08.1 Rheumatic disorders of both mitral and tricuspid valves; I37.1 Nonrheumatic pulmonary valve insufficiency; Z99.81 Dependence on supplemental oxygen; Z82.49 Family history of ischemic heart disease and other diseases of the circulatory system; Z83.3 Family history of diabetes mellitus; Z79.01 Long term (current) use of anticoagulants; Z79.52 Long term (current) use of systemic steroids
CPT/HCPCS: 36415; 71010; 71275; 80053; 81003; 82550; 82553; 83605; 83880; 84484; 85025; 85379; 85610; 85730; 86140; 87040; 93005; 93306; 94760; 94762; A9270-GY; G0378; J1650; J7512; Q9967

== ENCOUNTER 2017-02-13 16:04 | Inpatient (IN) | payer OTHER ==
[2017-02-13] MEDS ORDERED: Morphine INJ* 4 MG/ML 1 ML CARPUJECT IV ONE (16:30)
[2017-02-13] MEDS ORDERED: Orphenadrine Citrate IV* 30 MG/ML 2 ML VIAL IV ONE (16:30)
[2017-02-13] MEDS ORDERED: Dexamethasone IV* 4 MG/ML 1 ML (4 MG) IV SLOW PU ONE (16:30)
--- NOTE | 2017-02-13 17:59 | RAD ---
Indication: Back pain. CT of the lumbar spine was obtained in the axial plane. Sagittal and coronal reconstructed images were obtained. MRI dated November 30, 2016 was reviewed. There is diffuse osteopenia noted. At L5-S1 there is degenerative disc disease present. Diffuse osteopenia is noted. Facet arthropathy is noted. There is compression fracture of the L4 vertebra. This is approximately 50-75%. This is similar to that present on November 28, 2016. There is mild retropulsion of the superior posterior endplate with mild to moderate spinal stenosis. No definite foraminal stenosis is noted. Diffuse osteopenia is noted. Mild compression of the L3 vertebra is noted of approximately 25%. This is not significantly changed since previous exam. Mild compression superior endplate of L2 is noted. This has similar configuration to that seen previously. Mild compression inferior endplate of L1 which is also unchanged. IMPRESSION: 50-75% compression of L4, 25% compression of L3, superior endplate of L2 and 20% compression inferior endplate L1. There may be some mild retropulsion of the endplates at L4 superiorly however this is unchanged from previous exam. Mild spinal stenosis is noted. No new fractures are noted. Diffuse osteopenia. At L3-L4 there is broad-based protrusion present. No central or foraminal stenosis is noted. No fracture is identified. Mild compression of L3 is noted. At L1-L2 mild compression inferior endplate of L1 superior endplate of L2 which is similar to that seen on prior MRI.
[2017-02-13] MEDS ORDERED: fentaNYL* 50 MCG/ML 2 ML VIAL (100 MCG VIAL) IV SLOW PU ONE (18:27)
[2017-02-13 19:12] LABS: Hematocrit 41 % (42-52); Hemoglobin 13.6 g/dl (14.0-18.0); Mean Corpuscular HGB Conc 33 g/dl (31-36); Mean Corpuscular Hemoglobin 30 pg (27-31); Mean Corpuscular Volume 91 fL (80-94); Mean Platelet Volume 8 um3 (7.4-10.4); Red Blood Count 4.55 10^6/ul (4.0-5.4); Red Cell Distribution Width 16 % (10.5-15); White Blood Count 11.6 10^3/ul (3.5-10.8)
[2017-02-13 19:37] LABS: Urine Bilirubin Negative (Negative); Urine Glucose Negative (Negative); Urine Nitrite Negative (Negative)
[2017-02-13] MEDS ORDERED: Melatonin (NF) 3 MG TAB PO PRN (20:14)
[2017-02-13] MEDS ORDERED: oxyCODONE TAB* 5 MG TAB PO PRN (20:14)
[2017-02-13] MEDS ORDERED: traMADol TAB* 50 MG PO PRN (20:14)
[2017-02-13] MEDS ORDERED: Ondansetron INJ* 2 MG/ML VIAL IV PRN (20:14)
--- NOTE | 2017-02-13 22:25 | HP ---
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 From his lob back pain standpoint, he was doing reasonably well for the past month. Unfortunately today he was at home walking out to his car without his cane, stumbled and fell landing on his R side and experiencing immediate severe low back pain and R posterior shoulder pain. He denies head injury or LOC. There were no prodromal symptoms, specifically no chest pain, SOB , palpitations, or focal W/N/T. He was unable to get up and required EMS to come for transport to [facility]. Post-fall he denies any W/N/T or other new symptoms. PMedHx saddle PE 10/2016 giant cell arteritis w/ polymyalgia rheumatica L2-L4 compression FXs w/ chronic LBP hypothyroidism HLD BPH Ambulatory Orders Atorvastatin* [Lipitor 40 MG*] 40 mg PO DAILY 10/26/16 Levothyroxine TAB* [Synthroid TAB*] 135 mcg PO DAILY 10/26/16 predniSONE TAB* [Deltasone TAB*] 20 mg PO DAILY 10/26/16 Rivaroxaban TAB(*) [Xarelto 20 mg] 20 mg PO DAILY #30 tab 10/29/16 Allergies No Known Allergies Allergy (Verified 02/13/17 16:12) PSurgHx denies SocHx: no tobacco, alcohol, or recreational drugs; single, lives alone; [employer]; full code status FamHx: positive for CAD ROS: as above, otherwise reviewed and all were negative vitals: Vital Signs Temp 37.1 C 02/13/17 16:10 Pulse 95 02/13/17 18:00 Resp 18 02/13/17 19:23 BP 152/100 02/13/17 20:32 Pulse Ox 91 02/13/17 18:00 Intake & Output 02/12/17 02/13/17 02/13/17 23:59 11:59 23:59 Weight 103.873 kg Constitutional: NAD, normally developed, obese white male HEENM: atraumatic; sclera/conjunctiva: anicteric/clear; hearing: clinically intact; oropharynx: clear, mucosa moist Neck: soft tissue: non-tender; thyroid: normal Pulmonary: clear to auscultation bilaterally, good aeration, no accessory muscle use CV: RR/RR, normal S1S2, no carotid bruit, no jugular venous distention, 2+ B DP/ PT, 3+ BLE edema Abdominal: soft, non-distended, non-tender, no rebound/guarding/rigidity, normoactive bowel sounds, no hepatosplenomegaly or masses, no costovertebral angle tenderness Musculoskeletal: general: grossly intact, no palpable tenderness of LE; tender lumbar paraspinal muscles, unable to lift either leg from bed without severe low back pain, able to move ankles/feet/toes without issue Integumental: small abrasion R elbow lateral epicondyle Neurological sensory crude touch: intact BLE Psychiatric orientation: AA&O to PPS affect: calm mood: cooperative eye contact: fair content: reliable responses: timely insight: fair to good Testing: Lab Results 02/13/17 02/13/17 02/13/17 Range/Units 18:47 18:47 19:26 WBC 11.6 H (3.5-10.8) 10^3/ul RBC 4.55 (4.0-5.4) 10^6/ul Hgb 13.6 L (14.0-18.0) g/dl Hct 41 L (42-52) % MCV 91 (80-94) fL MCH 30 (27-31) pg MCHC 33 (31-36) g/dl RDW 16 H (10.5-15) % Plt Count 273 (150-450) 10^3/ul MPV 8 (7.4-10.4) um3 Neut % (Auto) 89.7 H (38-83) % Lymph % (Auto) 6.7 L (25-47) % [place] % (Auto) 3.4 (1-9) % Eos % (Auto) 0 (0-6) % Baso % (Auto) 0.2 (0-2) % Absolute Neuts (auto) 10.4 H (1.5-7.7) 10^3/ul Absolute Lymphs (auto) 0.8 L (1.0-4.8) 10^3/ul Absolute Monos (auto) 0.4 (0-0.8) 10^3/ul Absolute Eos (auto) 0 (0-0.6) 10^3/ul Absolute Basos (auto) 0 (0-0.2) 10^3/ul Absolute Nucleated RBC 0.02 10^3/ul Nucleated RBC % 0.2 C-Reactive Protein 15.55 H (< 5.00) mg/L Urine Color Straw Urine Appearance Clear Urine pH 9.0 (5-9) Ur Specific [place] 1.008 L (1.010-1.030) Urine Protein Negative (Negative) Urine Ketones Negative (Negative) Urine Blood Negative (Negative) Urine Nitrate Negative (Negative) Urine Bilirubin Negative (Negative) Urine Urobilinogen Negative (Negative) Ur Leukocyte Esterase Negative (Negative) Urine Glucose Negative (Negative) ECG, personally reviewed: NSR rate 99, inverted T in III CT L-spine WO: IMPRESSION: 50-75% compression of L4, 25% compression of L3, superior endplate of L2 and 20% compression inferior endplate L1. There may be some mild retropulsion of the endplates at L4 superiorly however this is unchanged from previous exam. Mild spinal stenosis is noted. No new fractures are noted. Diffuse osteopenia. At L3-L4 there is broad-based protrusion present. No central or foraminal stenosis is noted. No fracture is identified. Mild compression of L3 is noted. At L1-L2 mild compression inferior endplate of L1 superior endplate of L2 which is similar to that seen on prior MRI. Impression: 66M HX chronic LBP related to compression FXs 2nd fall over the summer now being admitted observation for intractable LBP s/p new mechanical fall w/o new radiologic findings DIAGNOSIS & PLAN Primary intractable LBP s/p mechanical fall : HX L2-L4 compression FXs w/ chronic LBP : was offered IV steroid, but refused; continue PO prednisone : pain control : PT/OT evaluations : supportive care Secondary saddle PE 10/2016 : continue rivaroxaban giant cell arteritis w/ polymyalgia rheumatica : continue prednisone PO hypothyroidism : continue levothyroxine HLD : continue atorvastatin Admission Rational: observation for intractable LBP DVTp: rivaroxaban Code Status: full HCP: sisterCassia
[2017-02-13] MEDS: fentaNYL* 50 MCG/ML 2 ML VIAL (100 MCG VIAL) IV SLOW PU PRN (23:17)
[2017-02-13] MEDS: Docusate CAP* 100 MG PO SCH (23:21)
[2017-02-14] MEDS ORDERED: Benzonatate CAP* 100 MG ONE (00:44)
[2017-02-14] MEDS: Rivaroxaban TAB(*) 20 MG TAB PO SCH ×2 (00:45→17:42)
[2017-02-14] MEDS: Benzonatate CAP* 100 MG PO PRN ×3 (00:45→23:43)
[2017-02-14] MEDS: Levothyroxine TAB* 25 MCG TAB PO SCH (06:01)
[2017-02-14] MEDS: Levothyroxine TAB* 112 MCG TAB PO SCH (06:02)
[2017-02-14] MEDS: Omeprazole CAP* 20 MG PO SCH (06:02)
--- NOTE | 2017-02-14 08:32 | ED ---
Scott Iglesias Angela, scribed for Mihai Billy MD on 02/13/17 at 1619 . Adult Trauma - HPI Summary HPI Summary: This pt is a 66 y/o male presenting to [facility] via EMS c/o back pain s/p mechanical fall today. Pt reports he was walking around without his cane and he tripped over his own feet and fell onto his right side. He denies head strike or LOC. Pt states his pain is from the shoulder blades down to the his lower back. He denies numbness, weakness or tingling in LE, urinary or bowel incontinence. Pt notes he never had any pain to the touch before, and now does. He notes he had 5 lumbar fractures that were healing. Pt would like an MRI and states he does not want XRs because "they are a waste of time and money." - History of Current Complaint Chief Complaint: EDBackInjuryPain Stated Complaint: FALL Time Seen by Provider: 02/13/17 16:16 Hx Obtained From: Patient Mechanism of Injury: Fall - after tripping Loss of Consciousness: no loss of consciousness Onset/Duration: Started Hours Ago, Traumatic, Still Present Onset of Pain: Immediate Current Severity: Moderate Pain Intensity: 4 Pain Scale Used: 0-10 Numeric Location: Back Aggravating Factor(s): Movement Alleviating Factor(s): Rest Associated Signs & Symptoms: Positive: Other: - NEG: bowel or urinary incontinence. Negative: Loss of Consciousness, Numbness/Weakness - Additional Pertinent History Primary Care Physician: [id number] - Allergy/Home Medications Allergies/Adverse Reactions: Allergies Allergy/AdvReac Type Severity Reaction Status Date / Time No Known Allergies Allergy Verified 02/13/17 16:12 PMH/Surg Hx/FS Hx/Imm Hx Endocrine/Hematology History: Reports: Hx Thyroid Disease Denies: Hx Diabetes Cardiovascular History: Reports: Hx Angina, Hx Hypercholesterolemia, Hx Valvular Heart Disease Denies: Hx Coronary Artery Disease, Hx Hypertension, Hx Myocardial Infarction , Hx Pacemaker/ICD History: Denies: Hx Renal Disease Musculoskeletal History: Reports: Other Musculoskeletal History - Pt notes he has a lumbar fracture of L3 and L4 since July. Denies: Hx Rheumatoid Arthritis, Hx Osteoporosis, Hx Scoliosis Sensory History: Reports: Hx Contacts or Glasses Denies: Hx Hearing Aid Opthamlomology History: Reports: Hx Contacts or Glasses Neurological History: Denies: Hx Headaches Psychiatric History: Denies: Hx Panic Disorder Infectious Disease History: No Infectious Disease History: Denies: Hx Shingles, Hx Tuberculosis, Traveled Outside the [place] in Last 30 Days - Family History Known Family History: Positive: Cardiac Disease - Social History Alcohol Use: None Substance Use Type: Reports: None Smoking Status (MU): Never Smoked Tobacco Have You Smoked in the Last Year: No Review of Systems Negative: Fever, Chills Eyes: Negative ENT: Negative Negative: incontinence - urinary or bowel Musculoskeletal: Other - back pain Neurological: Other - NEG: LOC Negative: Weakness, Paresthesia, Numbness All Other Systems Reviewed And Are Negative: Yes Physical Exam - Summary Physical Exam Summary: VITAL SIGNS: Reviewed. GENERAL: Patient is a well-developed and nourished male. Patient is not in any acute respiratory distress. HEAD AND FACE: No signs of trauma. No ecchymosis, hematomas or skull depressions. No sinus tenderness. EYES: PERRLA, EOMI x 2, No injected conjunctiva, no nystagmus. EARS: Hearing grossly intact. Ear canals and tympanic membranes are within normal limits. MOUTH: Oropharynx within normal limits. NECK: Supple, trachea is midline, no adenopathy, no JVD, no carotid bruit, no c- spine tenderness, neck with full ROM. CHEST: Symmetric, no tenderness at palpation LUNGS: Clear to auscultation bilaterally. No wheezing or crackles. CVS: Regular rate and rhythm, S1 and S2 present, no murmurs or gallops appreciated. ABDOMEN: Soft, non-tender. No signs of distention. No rebound no guarding, and no masses palpated. Bowel sounds are normal. EXTREMITIES: FROM in all major joints, no edema, no cyanosis or clubbing. MSK: I'm unable to examine the lower back because he will not let me. I tried multiple ways but pt refuses due to his pain. Pt has vertebral tenderness in the lumbar spine. NEURO: Alert and oriented x 3. No acute neurological deficits. Speech is normal and follows commands. SKIN: Dry and warm Triage Information Reviewed: Yes Vital Signs On Initial Exam: Initial Vitals Temp Pulse Resp BP Pulse Ox 98.7 F 98 18 159/100 95 02/13/17 16:10 02/13/17 16:10 02/13/17 16:10 02/13/17 16:10 02/13/17 16:10 Vital Signs Reviewed: Yes Diagnostics - Vital Signs Vital Signs Temp Pulse Resp BP Pulse Ox 02/13/17 16:10 98.7 F 98 18 159/100 95 - Laboratory Lab Statement: Any lab studies that have been ordered have been reviewed, and results considered in the medical decision making process. - CT Lumbar spine CT CT Interpretation: Positive (See Comments) - IMPRESSION: 50-75% compression of L4, 25% compression of L3, superior endplate of L2 and 20% compression inferior endplate L1. There may be some mild retropulsion of the endplates at L4 superiorly however this is unchaned from previous exam. Mild spinal stenosis is noted. No new fractures are noted. Diffuse osteopenia. At L3-L4 there is broad- based protrusion present. No central or foraminal stenosis is noted. No fracture is identified. Mild compression of L3 is noted. At L1-L2 mild compression inferior endplate of L1 superior endplate of L2 which is similar to that seen on prior MRI. ED physician has reviewed this radiology report and agrees. CT Interpretation Completed By: Radiologist - EKG 1834 Cardiac Rate: NL EKG Rhythm: Sinus Rhythm - at 99 bpm EKG Interpretation: No ST elevations Adult Trauma Course/Dx - Course Assessment/Plan: This pt is a 66 y/o male presenting to [facility] via EMS c/o back pain s/p mechanical fall today. Pt reports he was walking around without his cane and he tripped over his own feet and fell onto his right side. He denies head strike or LOC. Pt states his pain is from the shoulder blades down to the his lower back. He denies numbness, weakness or tingling in LE, urinary or bowel incontinence. Pt notes he never had any pain to the touch before, and now does. He notes he had 5 lumbar fractures that were healing. Pt would like an MRI and states he does not want XRs because "they are a waste of time and money. ". Test results without any significant abnormalities. Lumbar spine CT shows 50-75% compression of L4, 25% compression of L3, superior endplate of L2 and 20 % compression inferior endplate L1. There may be some mild retropulsion of the endplates at L4 superiorly however this is unchaned from previous exam. Mild spinal stenosis is noted. No new fractures are noted. Diffuse osteopenia. At L3- L4 there is broad-based protrusion present. No central or foraminal stenosis is noted. No fracture is identified. Mild compression of L3 is noted. At L1-L2 mild compression inferior endplate of L1 superior endplate of L2 which is similar to that seen on prior MRI. It seems that these findings of this CT are unchanged from a previous MRI on 11/30/16. However, he continues to have pain despite morphine, Decadron, Norflex, and Fentanyl. Therefore, I discussed the test results and findings with Dr. Romero, who accepted the pt for admission. Pt is hemodynamically stable, alert and oriented x3. - Diagnoses Provider Diagnoses: Intractable back pain, multiple lumbar fractures - Physician Notifications Discussed Care Of Patient With: Maryan Romero Time Discussed With Above Provider: 18:41 Instructed by Provider To: Other - I discussed the pt's case with Dr. Romero, who has accepted the pt for admission. Discharge - Discharge Plan Condition: Stable Disposition: ADMITTED TO [facility] Referrals: Wyatt Willis MD [Primary Care Provider] - The documentation as recorded by the Scott mc Angela accurately reflects the service I personally performed and the decisions made by , Mihai Billy MD.
[2017-02-14] MEDS: Atorvastatin* 40 MG TAB PO SCH (08:43)
[2017-02-14] MEDS: predniSONE TAB* 20 MG PO SCH (08:43)
[2017-02-14] MEDS: fentaNYL* 50 MCG/ML 2 ML VIAL (100 MCG VIAL) IV SLOW PU PRN ×2 (08:44→21:09)
[2017-02-14] MEDS: Docusate CAP* 100 MG PO SCH (08:46)
[2017-02-14] MEDS ORDERED: Levothyroxine TAB* 175 MCG TAB PO SCH (09:00)
[2017-02-14] MEDS ORDERED: Docusate CAP* 100 MG PO PRN (16:10)
--- NOTE | 2017-02-14 16:17 | PN ---
Subjective Date of Service: 02/14/17 Interval History: Pt is feeling ok currently. He denies any pain at this time. He notes that the pain is mostly in his upper back. He has pain especially on his left side when he tries to move. He thinks he fell on to his left side. Objective Active Medications: Acetaminophen (Tylenol Tab*) 650 mg PO Q6H PRN PRN Reason: FEVER/PAIN Atorvastatin Calcium (Lipitor*) 40 mg PO DAILY [facility] Last Admin: 02/14/17 08:43 Dose: 40 mg Benzonatate (Tessalon Cap*) 100 mg PO TID PRN PRN Reason: COUGH Last Admin: 02/14/17 06:02 Dose: 100 mg Cyclobenzaprine HCl (Flexeril Tab*) 10 mg PO TID PRN PRN Reason: SPASMS Docusate Sodium (Colace Cap*) 200 mg PO BID PRN PRN Reason: CONSTIPATION Fentanyl Citrate (Fentanyl*) 25 mcg IV SLOW PU Q4H PRN PRN Reason: PAIN Last Admin: 02/14/17 08:44 Dose: 25 mcg Levothyroxine Sodium (Synthroid Tab*) 112 mcg PO DAILY@0600 [facility] Last Admin: 02/14/17 06:02 Dose: 112 mcg Levothyroxine Sodium (Synthroid Tab*) 25 mcg PO DAILY@0600 [facility] Last Admin: 02/14/17 06:01 Dose: 25 mcg Melatonin (Melatonin (Nf)) 3 mg PO BEDTIME PRN; Protocol PRN Reason: Sleep Omeprazole (Prilosec Cap*) 20 mg PO DAILY@0600 [facility] Last Admin: 02/14/17 06:02 Dose: 20 mg Ondansetron HCl (Zofran Inj*) 4 mg IV Q6H PRN PRN Reason: NAUSEA Oxycodone HCl (Roxycodone Tab*) 5 mg PO Q4H PRN PRN Reason: PAIN Prednisone (Deltasone Tab*) 20 mg PO DAILY [facility] Last Admin: 02/14/17 08:43 Dose: 20 mg Rivaroxaban (Xarelto (*)) 20 mg PO 1700 [facility] Last Admin: 02/14/17 00:45 Dose: 20 mg Tramadol HCl (Ultram*) 50 mg PO Q6H PRN PRN Reason: PAIN Vital Signs - 8 hr 02/14/17 02/14/1717 08:44 10:21 15:11 Temperature 98.0 F Pulse Rate 107 Respiratory 16 16 20 Rate Blood Pressure 154/80 (mmHg) O2 Sat by Pulse 95 Oximetry Oxygen Devices in Use Now: None Appearance: Middle aged male sitting up in bed, NAD Eyes: No Scleral Icterus Ears/Nose/Mouth/Throat: Mucous Membranes Moist Respiratory: Symmetrical Chest Expansion and Respiratory Effort, Clear to Auscultation - anteriorly Cardiovascular: NL Sounds; No Murmurs; No JVD, RRR, - - 2+ pitting edema of B/L LE Abdominal: NL Sounds; No Tenderness; No Distention Extremities: No Clubbing, Cyanosis Skin: No Rash or Ulcers, No Nodules or Sclerosis Neurological: Alert and Oriented x 3 Result Diagrams: 02/13/17 18:47 Microbiology and Other Data: Microbiology 02/13/17 20:40 Nasal Screen MRSA (PCR)(LAUREN) - Final Nasal Mrsa Negative Assess/Plan/Problems-Billing Mr Michael is a 66 yo M who has a h/o PE on xarelto, temporal arteritis and lumbar compression fractures who presented to the ER with c/o back pain after a mechanical fall. - Patient Problems (1) Back pain Current Visit: Yes Status: Acute Code(s): M54.9 - DORSALGIA, UNSPECIFIED SNOMED Code(s): 195815887 Comment: Will get CT thoracic spine due to location of pain. We have discussed using pain medication then trying to move. Will get repeat PT eval tomorrow. Start prn flexeril for muscle spasms. (2) Giant cell arteritis Current Visit: Yes Status: Acute Code(s): M31.6 - OTHER GIANT CELL ARTERITIS SNOMED Code(s): 715059771 Comment: Continue prednisone 20mg daily. (3) Pulmonary emboli Current Visit: Yes Status: Acute Code(s): I26.99 - OTHER PULMONARY EMBOLISM WITHOUT ACUTE COR PULMONALE SNOMED Code(s): 79301681 Comment: Continue xarelto. (4) Hypothyroidism Current Visit: Yes Status: Acute Code(s): E03.9 - HYPOTHYROIDISM, UNSPECIFIED SNOMED Code(s): 58637685 Comment: Continue home synthroid dose. (5) DVT prophylaxis Current Visit: Yes Status: Acute Code(s): YTF5586 - SNOMED Code(s): 229043220 Comment: Tal (6) Full code status Current Visit: Yes Status: Acute Code(s): Z78.9 - OTHER SPECIFIED HEALTH STATUS SNOMED Code(s): 972949342
[2017-02-14] MEDS: Cyclobenzaprine TAB* 10 MG PO PRN (17:42)
--- NOTE | 2017-02-14 17:56 | RAD ---
Indication: Upper back pain. CT of the thoracic spine was obtained in the axial plane. Sagittal and coronal reconstructed images were obtained. Mild compression of T6, T8, T9, T11 and T12 is noted. Age of these are undetermined. No retropulsed fragment is noted. The spinal canal appears to be intact. No evidence of paravertebral soft tissue swelling is noted. There are bilateral pleural effusions noted. The thoracic aorta is otherwise unremarkable. Spinal canal appears to be intact. There is diffuse osteopenia making evaluation of the thoracic spine difficult although when compared with CT of the chest performed on January 28, 2017 the appearance of these vertebra are unchanged. IMPRESSION: Diffuse osteopenia. Mild compression of T6, T8, T9 and T11 and T12 which are likely old since findings are similar to that present on January 28, 2017 with no evidence of spinal stenosis.
[2017-02-15] MEDS: Levothyroxine TAB* 112 MCG TAB PO SCH (06:07)
[2017-02-15] MEDS: Levothyroxine TAB* 25 MCG TAB PO SCH (06:07)
[2017-02-15] MEDS: Omeprazole CAP* 20 MG PO SCH (06:07)
[2017-02-15] MEDS: Cyclobenzaprine TAB* 10 MG PO PRN ×2 (08:34→20:26)
[2017-02-15] MEDS: Atorvastatin* 40 MG TAB PO SCH (08:35)
[2017-02-15] MEDS: Benzonatate CAP* 100 MG PO PRN ×2 (08:42→20:38)
[2017-02-15] MEDS: predniSONE TAB* 20 MG PO SCH (09:00)
[2017-02-15] MEDS: fentaNYL* 50 MCG/ML 2 ML VIAL (100 MCG VIAL) IV SLOW PU PRN (09:25)
[2017-02-15] MEDS ORDERED: oxyCODONE TAB* 5 MG TAB PO PRN (14:16)
--- NOTE | 2017-02-15 14:31 | PN ---
Subjective Date of Service: 02/15/17 Interval History: Pt states last night he tried to get to sitting and he had 10/10 pain and could do nothing further. He is very concerned about taking oxycodone due to its addiction potential. I informed him that at this time he needs the pain medication to be able to move. He is willing to try taking the oxycodone routinely to see if it helps him move. Objective Active Medications: Acetaminophen (Tylenol Tab*) 650 mg PO Q6H PRN PRN Reason: FEVER/PAIN Atorvastatin Calcium (Lipitor*) 40 mg PO DAILY [facility] Last Admin: 02/15/17 08:35 Dose: 40 mg Benzonatate (Tessalon Cap*) 100 mg PO TID PRN PRN Reason: COUGH Last Admin: 02/15/17 08:42 Dose: 100 mg Cyclobenzaprine HCl (Flexeril Tab*) 10 mg PO TID PRN PRN Reason: SPASMS Last Admin: 02/15/17 08:34 Dose: 10 mg Docusate Sodium (Colace Cap*) 200 mg PO BID PRN PRN Reason: CONSTIPATION Fentanyl Citrate (Fentanyl*) 25 mcg IV SLOW PU Q4H PRN PRN Reason: PAIN Last Admin: 02/15/17 09:25 Dose: 25 mcg Levothyroxine Sodium (Synthroid Tab*) 112 mcg PO DAILY@0600 [facility] Last Admin: 02/15/17 06:07 Dose: 112 mcg Levothyroxine Sodium (Synthroid Tab*) 25 mcg PO DAILY@0600 [facility] Last Admin: 02/15/17 06:07 Dose: 25 mcg Melatonin (Melatonin (Nf)) 3 mg PO BEDTIME PRN; Protocol PRN Reason: Sleep Omeprazole (Prilosec Cap*) 20 mg PO DAILY@0600 [facility] Last Admin: 02/15/17 06:07 Dose: 20 mg Ondansetron HCl (Zofran Inj*) 4 mg IV Q6H PRN PRN Reason: NAUSEA Oxycodone HCl (Roxycodone Tab*) 10 mg PO Q4H PRN PRN Reason: pain 6-10 Oxycodone HCl (Roxycodone Tab*) 5 mg PO Q4H PRN PRN Reason: Pain 1-5 Prednisone (Deltasone Tab*) 20 mg PO DAILY [facility] Last Admin: 02/15/17 09:00 Dose: 20 mg Rivaroxaban (Xarelto (*)) 20 mg PO 1700 [facility] Last Admin: 02/14/17 17:42 Dose: 20 mg Tramadol HCl (Ultram*) 50 mg PO Q6H PRN PRN Reason: PAIN Vital Signs - 8 hr 02/15/17 02/15/17 02/15/17 07:24 08:00 08:34 Temperature 97.6 F Pulse Rate 93 Respiratory 16 16 18 Rate Blood Pressure 147/84 (mmHg) O2 Sat by Pulse 93 Oximetry 02/15/17 02/15/17 09:25 11:59 Temperature Pulse Rate Respiratory 22 16 Rate Blood Pressure (mmHg) O2 Sat by Pulse Oximetry Oxygen Devices in Use Now: None Appearance: Middle aged male sitting in bed, NAD Eyes: No Scleral Icterus Ears/Nose/Mouth/Throat: Mucous Membranes Moist Respiratory: Symmetrical Chest Expansion and Respiratory Effort, Clear to Auscultation Cardiovascular: NL Sounds; No Murmurs; No JVD, RRR, No Edema Abdominal: NL Sounds; No Tenderness; No Distention Extremities: No Clubbing, Cyanosis Skin: No Rash or Ulcers, No Nodules or Sclerosis Neurological: Alert and Oriented x 3 Result Diagrams: 02/13/17 18:47 Microbiology and Other Data: Microbiology 02/13/17 20:40 Nasal Screen MRSA (PCR)(LAUREN) - Final Nasal Mrsa Negative Assess/Plan/Problems-Billing Mr Michael is a 66 yo M who has a h/o PE on xarelto, temporal arteritis and lumbar compression fractures who presented to the ER with c/o back pain after a mechanical fall. - Patient Problems (1) Back pain Current Visit: Yes Status: Acute Code(s): M54.9 - DORSALGIA, UNSPECIFIED SNOMED Code(s): 979684208 Comment: No acute findings on CT thoracic spine. Likely bruise/strain. The patient needs a significant amount of encouragement to try new medications and encouragement to move. He is open to STR as of now. He will take oxycodone q4hr while awake to see if it allows him to move more easily. (2) Giant cell arteritis Current Visit: Yes Status: Acute Code(s): M31.6 - OTHER GIANT CELL ARTERITIS SNOMED Code(s): 068567926 Comment: Continue prednisone 20mg daily. (3) Pulmonary emboli Current Visit: Yes Status: Acute Code(s): I26.99 - OTHER PULMONARY EMBOLISM WITHOUT ACUTE COR PULMONALE SNOMED Code(s): 70900562 Comment: Continue xarelto. (4) Hypothyroidism Current Visit: Yes Status: Acute Code(s): E03.9 - HYPOTHYROIDISM, UNSPECIFIED SNOMED Code(s): 82061029 Comment: Continue home synthroid dose. (5) DVT prophylaxis Current Visit: Yes Status: Acute Code(s): [id number] - SNOMED Code(s): 099721016 Comment: Xarelto (6) Full code status Current Visit: Yes Status: Acute Code(s): Z78.9 - OTHER SPECIFIED HEALTH STATUS SNOMED Code(s): 477405989
[2017-02-15] MEDS: oxyCODONE TAB* 5 MG TAB PO PRN ×2 (14:42→20:26)
[2017-02-15] MEDS: Rivaroxaban TAB(*) 20 MG TAB PO SCH (17:43)
[2017-02-16] MEDS: oxyCODONE TAB* 5 MG TAB PO PRN ×3 (00:26→10:25)
[2017-02-16] MEDS: Benzocaine/Menthol LOZ* 1 LOZENGE PO PRN ×2 (00:30→05:03)
[2017-02-16] MEDS: Levothyroxine TAB* 25 MCG TAB PO SCH (05:00)
[2017-02-16] MEDS: Levothyroxine TAB* 112 MCG TAB PO SCH (05:00)
[2017-02-16] MEDS: Omeprazole CAP* 20 MG PO SCH (05:06)
[2017-02-16 10:08] LABS: Hematocrit 43 % (42-52); Hemoglobin 14.1 g/dl (14.0-18.0); Mean Corpuscular HGB Conc 33 g/dl (31-36); Mean Corpuscular Hemoglobin 30 pg (27-31); Mean Corpuscular Volume 90 fL (80-94); Mean Platelet Volume 8 um3 (7.4-10.4); Red Blood Count 4.75 10^6/ul (4.0-5.4); Red Cell Distribution Width 17 % (10.5-15); White Blood Count 13.6 10^3/ul (3.5-10.8)
[2017-02-16 10:22] LABS: BUN/Creatinine Ratio 13.4 (8-20); Calcium 10.7 mg/dL (8.6-10.3); EGFR African American 83.8 (>60); EGFR Non-African American 65.2 (>60); Potassium 4.2 mmol/L (3.5-5.0)
[2017-02-16] MEDS: Atorvastatin* 40 MG TAB PO SCH (10:25)
[2017-02-16] MEDS: Acetaminophen TAB* 325 MG PO PRN (10:26)
[2017-02-16] MEDS: Cyclobenzaprine TAB* 10 MG PO PRN (10:26)
[2017-02-16] MEDS: predniSONE TAB* 20 MG PO SCH (10:26)
--- NOTE | 2017-02-16 10:33 | RAD ---
Indication: Intractable low back pain. Fracture. Assess for pulmonary infiltrate. Comparison: January 28, 2017 CT. February 14, 2017 CT thoracic spine. Technique: Positioning limited due to poor tolerance/compliance with exam positioning. Sitting AP and lateral chest views. Report: Low lung volumes with bibasilar compressive atelectasis. Grossly clear pleural spaces. Negative for pneumothorax. The heart, pulmonary vasculature, and mediastinal contours are unremarkable accounting for low lung volumes. Multiple osteoporotic appearing thoracic and vertebral compression fractures with associated increased thoracic kyphosis which appears increased compared with the February 14, 2017 exam. IMPRESSION: 1. Limited hypoventilated exam with bibasilar atelectasis. Inflammatory infiltrate at the consolidated lung bases is not excluded. 2. Multiple osteoporotic appearing thoracic and vertebral compression fractures with associated increased thoracic kyphosis which appears increased compared with the February 14, 2017 exam. Interval progression of a lower thoracic compression fracture compared with February 14, 2017 exam is not excluded.
--- NOTE | 2017-02-16 13:39 | PN ---
Subjective Date of Service: 02/16/17 Interval History: Pt is feeling perhaps slightly better. He is moving more today than he was previously. He states that when he is upright and walking he has no pain. He has the most pain with changing positions. He thinks the oxycodone is making him drowsy. He has not had a BM and does not want any meds to help with it at this time. He tells me that he was using O2 up until a couple weeks ago intermittently throughout the day and with sleep but since his O2 saturations have been in the mid 90's he stopped. He states his HR has been 105-110's for the last 5 months. Objective Active Medications: Acetaminophen (Tylenol Tab*) 650 mg PO Q6H PRN PRN Reason: FEVER/PAIN Last Admin: 02/16/17 10:26 Dose: 650 mg Atorvastatin Calcium (Lipitor*) 40 mg PO DAILY [facility] Last Admin: 02/16/17 10:25 Dose: 40 mg Benzonatate (Tessalon Cap*) 100 mg PO TID PRN PRN Reason: COUGH Last Admin: 02/15/17 20:38 Dose: 100 mg Cyclobenzaprine HCl (Flexeril Tab*) 10 mg PO TID PRN PRN Reason: SPASMS Last Admin: 02/16/17 10:26 Dose: 10 mg Docusate Sodium (Colace Cap*) 200 mg PO BID PRN PRN Reason: CONSTIPATION Last Admin: 02/16/17 10:26 Dose: 200 mg Fentanyl Citrate (Fentanyl*) 25 mcg IV SLOW PU Q4H PRN PRN Reason: PAIN Last Admin: 02/15/17 09:25 Dose: 25 mcg Levothyroxine Sodium (Synthroid Tab*) 112 mcg PO DAILY@0600 [facility] Last Admin: 02/16/17 05:00 Dose: 112 mcg Levothyroxine Sodium (Synthroid Tab*) 25 mcg PO DAILY@0600 [facility] Last Admin: 02/16/17 05:00 Dose: 25 mcg Melatonin (Melatonin (Nf)) 3 mg PO BEDTIME PRN; Protocol PRN Reason: Sleep Omeprazole (Prilosec Cap*) 20 mg PO DAILY@0600 [facility] Last Admin: 02/16/17 05:06 Dose: Not Given Ondansetron HCl (Zofran Inj*) 4 mg IV Q6H PRN PRN Reason: NAUSEA Oxycodone HCl (Roxycodone Tab*) 10 mg PO Q4H PRN PRN Reason: pain 6-10 Last Admin: 02/16/17 10:25 Dose: 10 mg Oxycodone HCl (Roxycodone Tab*) 5 mg PO Q4H PRN PRN Reason: Pain 1-5 Prednisone (Deltasone Tab*) 20 mg PO DAILY [facility] Last Admin: 02/16/17 10:26 Dose: 20 mg Rivaroxaban (Xarelto (*)) 20 mg PO 1700 [facility] Last Admin: 02/15/17 17:43 Dose: 20 mg Throat Lozenges (Chloraseptic Katelin*) 1 katelin PO Q4H PRN PRN Reason: COUGH Last Admin: 02/16/17 05:03 Dose: 1 katelin Tramadol HCl (Ultram*) 50 mg PO Q6H PRN PRN Reason: PAIN Vital Signs - 8 hr 02/16/17 02/16/17 02/16/17 07:47 08:00 10:25 Respiratory 22 18 14 Rate 02/16/17 02/16/17 10:26 13:07 Respiratory 16 24 Rate Oxygen Devices in Use Now: Nasal Cannula - 5L Appearance: Middle aged male sitting up in bed, NAD Eyes: No Scleral Icterus Ears/Nose/Mouth/Throat: Mucous Membranes Moist Respiratory: Symmetrical Chest Expansion and Respiratory Effort, - - LLL crackles Cardiovascular: NL Sounds; No Murmurs; No JVD, No Edema, - - tachycardic but regular Result Diagrams: 02/16/17 09:50 02/16/17 09:50 Microbiology and Other Data: Microbiology 02/13/17 20:40 Nasal Screen MRSA (PCR)(LAUREN) - Final Nasal Mrsa Negative Assess/Plan/Problems-Billing Mr Michael is a 66 yo M who has a h/o PE on xarelto, temporal arteritis and lumbar compression fractures who presented to the ER with c/o back pain after a mechanical fall. - Patient Problems (1) Hypoxia Current Visit: Yes Status: Acute Code(s): R09.02 - HYPOXEMIA SNOMED Code(s ): 407060586 Comment: This am the patient dropped his O2 sat to 84% on RA. He is now requiring 5L O2. This in addition to increased tachycardia I question if he may have developed a PE-seems unlikely as he is already on xarelto. I also question possible pna given his increased WBC count and cough. Will get CTA chest as CXR was unrevealing. (2) Back pain Current Visit: Yes Status: Acute Code(s): M54.9 - DORSALGIA, UNSPECIFIED SNOMED Code(s): 540388484 Comment: The patient has started to move more than he was. Changing position seems to be the worst. Will continue prn oxycodone-I have encouraged the use again. Continue flexeril. Await PT eval. (3) Giant cell arteritis Current Visit: Yes Status: Acute Code(s): M31.6 - OTHER GIANT CELL ARTERITIS SNOMED Code(s): 866748526 Comment: Continue prednisone 20mg daily. (4) Pulmonary emboli Current Visit: Yes Status: Acute Code(s): I26.99 - OTHER PULMONARY EMBOLISM WITHOUT ACUTE COR PULMONALE SNOMED Code(s): 60376383 Comment: Continue xarelto. (5) Hypothyroidism Current Visit: Yes Status: Acute Code(s): E03.9 - HYPOTHYROIDISM, UNSPECIFIED SNOMED Code(s): 00925466 Comment: Continue home synthroid dose. (6) DVT prophylaxis Current Visit: Yes Status: Acute Code(s): ONB4459 - SNOMED Code(s): 758687049 Comment: Xarelto (7) Full code status Current Visit: Yes Status: Acute Code(s): Z78.9 - OTHER SPECIFIED HEALTH STATUS SNOMED Code(s): 835114980
[2017-02-16] MEDS ORDERED: Iohexol 350* (CONTRAST) 500 ML MDV IV ONE (14:20)
--- NOTE | 2017-02-16 16:38 | RAD ---
INDICATION: Intractable low back pain. Mechanical fall. COMPARISON: January 28, 2017 CT. TECHNIQUE: Multidetector CT images were obtained from the lung apices to the upper abdomen with 80 mL Omnipaque 350 IV contrast. Pulmonary angiogram protocol. Multiplanar reformation including with maximum intensity projection. REPORT: Small dependent RIGHT pleural effusion. Low lung volumes with gross complete atelectasis of the RIGHT lower lobe and partial atelectasis of the LEFT lower lobe. Partial atelectasis of the RIGHT middle lobe. Negative for pneumothorax. Negative for thoracic lymphadenopathy, cardiomegaly, pericardial effusion. Normal diameter thoracic aorta without evidence for dissection. No filling defects are identified from the main to the subsegmental pulmonary arteries to indicate presence of a pulmonary embolism. Images through the upper abdomen are remarkable for decreased density of the liver consistent with fatty infiltration. Splenule noted anterior to the dominant spleen. Multilevel anterior column thoracic compression fractures most prominent at T10 and T11 are unchanged compared with the prior exam. Minimally displaced fracture at the posterior segment of the LEFT first rib versus motion artifact. No periosseous hematoma evident. IMPRESSION: 1. Negative for pulmonary embolism. 2. New small RIGHT dependent pleural effusion and significant bilateral pulmonary atelectasis. Inflammatory infiltrate at the consolidated lung is not excluded. 3. No significant change in multiple anterior column osteoporotic thoracic compression fractures without evidence for new thoracic spine fracture. 4. Minimally displaced fracture at the posterior segment of the LEFT first rib versus motion artifact. No periosseous hematoma evident. Correlate with clinical assessment.
[2017-02-16] MEDS: Rivaroxaban TAB(*) 20 MG TAB PO SCH (16:48)
[2017-02-16] MEDS: Benzonatate CAP* 100 MG PO PRN (20:21)
[2017-02-16] MEDS: Levofloxacin 500 MG IVPREMIX(* 500 MG/100 ML BAG IVPB SCH (20:22)
[2017-02-17] MEDS: Levothyroxine TAB* 25 MCG TAB PO SCH (05:20)
[2017-02-17] MEDS: Levothyroxine TAB* 112 MCG TAB PO SCH (05:20)
[2017-02-17] MEDS: Omeprazole CAP* 20 MG PO SCH ×2 (05:20→05:21)
[2017-02-17] MEDS: Benzonatate CAP* 100 MG PO PRN ×3 (05:26→20:00)
[2017-02-17] MEDS: predniSONE TAB* 20 MG PO SCH (08:37)
[2017-02-17] MEDS: Atorvastatin* 40 MG TAB PO SCH (08:37)
[2017-02-17] MEDS: Benzocaine/Menthol LOZ* 1 LOZENGE PO PRN (08:37)
--- NOTE | 2017-02-17 09:13 | PN ---
Subjective Date of Service: 02/17/17 Interval History: Pt is feeling ok. He denies any SOB. He is trying to work on moving around in bed, getting to the edge of the bed, etc. His pain is about the same. Objective Active Medications: Acetaminophen (Tylenol Tab*) 650 mg PO Q6H PRN PRN Reason: FEVER/PAIN Last Admin: 02/16/17 10:26 Dose: 650 mg Atorvastatin Calcium (Lipitor*) 40 mg PO DAILY [facility] Last Admin: 02/17/17 08:37 Dose: 40 mg Benzonatate (Tessalon Cap*) 200 mg PO TID PRN PRN Reason: COUGH Last Admin: 02/17/17 08:37 Dose: 200 mg Cyclobenzaprine HCl (Flexeril Tab*) 10 mg PO TID PRN PRN Reason: SPASMS Last Admin: 02/16/17 10:26 Dose: 10 mg Docusate Sodium (Colace Cap*) 200 mg PO BID PRN PRN Reason: CONSTIPATION Last Admin: 02/16/17 10:26 Dose: 200 mg Fentanyl Citrate (Fentanyl*) 25 mcg IV SLOW PU Q4H PRN PRN Reason: PAIN Last Admin: 02/15/17 09:25 Dose: 25 mcg Levofloxacin/Dextrose (Levaquin 500 Mg Ivpremix(*)) 500 mg in 100 mls @ 100 mls /hr IVPB Q24H [facility] Last Admin: 02/16/17 20:22 Dose: 100 mls/hr Levothyroxine Sodium (Synthroid Tab*) 112 mcg PO DAILY@0600 [facility] Last Admin: 02/17/17 05:20 Dose: 112 mcg Levothyroxine Sodium (Synthroid Tab*) 25 mcg PO DAILY@0600 [facility] Last Admin: 02/17/17 05:20 Dose: 25 mcg Melatonin (Melatonin (Nf)) 3 mg PO BEDTIME PRN; Protocol PRN Reason: Sleep Omeprazole (Prilosec Cap*) 20 mg PO DAILY@0600 [facility] Last Admin: 02/17/17 05:21 Dose: Not Given Oxycodone HCl (Roxycodone Tab*) 10 mg PO Q4H PRN PRN Reason: pain 6-10 Last Admin: 02/16/17 10:25 Dose: 10 mg Oxycodone HCl (Roxycodone Tab*) 5 mg PO Q4H PRN PRN Reason: Pain 1-5 Prednisone (Deltasone Tab*) 20 mg PO DAILY [facility] Last Admin: 02/17/17 08:37 Dose: 20 mg Rivaroxaban (Xarelto (*)) 20 mg PO 1700 [facility] Last Admin: 02/16/17 16:48 Dose: 20 mg Throat Lozenges (Chloraseptic Katelin*) 1 katelin PO Q4H PRN PRN Reason: COUGH Last Admin: 02/17/17 08:37 Dose: 1 katelin Tramadol HCl (Ultram*) 50 mg PO Q6H PRN PRN Reason: PAIN Last Admin: 02/17/17 08:37 Dose: 50 mg Vital Signs - 8 hr 02/17/17 02/17/17 03:18 08:37 Temperature 97.6 F Pulse Rate 101 Respiratory 18 16 Rate Blood Pressure 129/83 (mmHg) O2 Sat by Pulse 93 Oximetry Oxygen Devices in Use Now: None Appearance: Middle aged male sitting up in bed, NAD Eyes: No Scleral Icterus Ears/Nose/Mouth/Throat: Mucous Membranes Moist Respiratory: Symmetrical Chest Expansion and Respiratory Effort, Clear to Auscultation - with LLL crackles Cardiovascular: NL Sounds; No Murmurs; No JVD, No Edema, - - mildly tachycardic Abdominal: - - hypoactive BS, soft, NT Extremities: No Clubbing, Cyanosis Skin: No Rash or Ulcers, No Nodules or Sclerosis Neurological: Alert and Oriented x 3 Result Diagrams: 02/16/17 09:50 02/16/17 09:50 Microbiology and Other Data: Microbiology 02/13/17 20:40 Nasal Screen MRSA (PCR)(LAUREN) - Final Nasal Mrsa Negative Assess/Plan/Problems-Billing Mr Michael is a 66 yo M who has a h/o PE on xarelto, temporal arteritis and lumbar compression fractures who presented to the ER with c/o back pain after a mechanical fall. - Patient Problems (1) Hypoxia Current Visit: Yes Status: Acute Code(s): R09.02 - HYPOXEMIA SNOMED Code(s ): 918527929 Comment: Levaquin started yesterday due to possible LLL pneumonia given inflammatory infiltrate on CXR, LLL crackles, hypoxia and tachycardia. Hypoxia is better today. Check WBC count tomorrow. No evidence of PE on CTA. (2) Back pain Current Visit: Yes Status: Acute Code(s): M54.9 - DORSALGIA, UNSPECIFIED SNOMED Code(s): 954047129 Comment: Continue to encourage pt to move around. He is considering STR. Continue prn oxycodone and flexeril. (3) Giant cell arteritis Current Visit: Yes Status: Acute Code(s): M31.6 - OTHER GIANT CELL ARTERITIS SNOMED Code(s): 750726314 Comment: Continue prednisone 20mg daily. (4) Pulmonary emboli Current Visit: Yes Status: Acute Code(s): I26.99 - OTHER PULMONARY EMBOLISM WITHOUT ACUTE COR PULMONALE SNOMED Code(s): 76626092 Comment: Continue xarelto. (5) Hypothyroidism Current Visit: Yes Status: Acute Code(s): E03.9 - HYPOTHYROIDISM, UNSPECIFIED SNOMED Code(s): 08566428 Comment: Continue home synthroid dose. (6) DVT prophylaxis Current Visit: Yes Status: Acute Code(s): SXZ5603 - SNOMED Code(s): 117544154 Comment: Xarelto (7) Full code status Current Visit: Yes Status: Acute Code(s): Z78.9 - OTHER SPECIFIED HEALTH STATUS SNOMED Code(s): 279573569
[2017-02-17] MEDS: Magnesium Hydroxide LIQ* 30 ML UDC PO PRN (17:31)
[2017-02-17] MEDS: Rivaroxaban TAB(*) 20 MG TAB PO SCH (18:20)
[2017-02-17] MEDS: Levofloxacin 500 MG IVPREMIX(* 500 MG/100 ML BAG IVPB SCH (20:02)
[2017-02-18] MEDS: Levothyroxine TAB* 112 MCG TAB PO SCH (06:32)
[2017-02-18] MEDS: Omeprazole CAP* 20 MG PO SCH (06:32)
[2017-02-18] MEDS: Levothyroxine TAB* 25 MCG TAB PO SCH (06:32)
[2017-02-18] MEDS: Magnesium Hydroxide LIQ* 30 ML UDC PO PRN (06:34)
[2017-02-18] MEDS: Atorvastatin* 40 MG TAB PO SCH (08:55)
[2017-02-18] MEDS: predniSONE TAB* 20 MG PO SCH (08:55)
[2017-02-18] MEDS ORDERED: traMADol TAB* 50 MG PO PRN (12:08)
--- NOTE | 2017-02-18 12:20 | PN ---
Subjective Date of Service: 02/18/17 Interval History: Continues to improve. Objective Active Medications: Acetaminophen (Tylenol Tab*) 650 mg PO Q6H PRN PRN Reason: FEVER/PAIN Last Admin: 02/16/17 10:26 Dose: 650 mg Acetaminophen (Tylenol Tab*) 650 mg PO QID [facility] Atorvastatin Calcium (Lipitor*) 40 mg PO DAILY [facility] Last Admin: 02/18/17 08:55 Dose: 40 mg Benzonatate (Tessalon Cap*) 200 mg PO TID PRN PRN Reason: COUGH Last Admin: 02/17/17 20:00 Dose: 200 mg Cyclobenzaprine HCl (Flexeril Tab*) 10 mg PO TID PRN PRN Reason: SPASMS Last Admin: 02/16/17 10:26 Dose: 10 mg Levofloxacin/Dextrose (Levaquin 500 Mg Ivpremix(*)) 500 mg in 100 mls @ 100 mls /hr IVPB Q24H [facility] Last Admin: 02/17/17 20:02 Dose: 100 mls/hr Levothyroxine Sodium (Synthroid Tab*) 112 mcg PO DAILY@0600 [facility] Last Admin: 02/18/17 06:32 Dose: 112 mcg Levothyroxine Sodium (Synthroid Tab*) 25 mcg PO DAILY@0600 [facility] Last Admin: 02/18/17 06:32 Dose: 25 mcg Magnesium Hydroxide (Milk Of Magnesia Liq*) 30 ml PO Q4H PRN PRN Reason: CONSTIPATION Last Admin: 02/18/17 06:34 Dose: 30 ml Omeprazole (Prilosec Cap*) 20 mg PO DAILY@0600 [facility] Last Admin: 02/18/17 06:32 Dose: 20 mg Oxycodone HCl (Roxycodone Tab*) 5 mg PO Q4H PRN PRN Reason: Pain 1-5 Polyethylene Glycol/Electrolytes (Miralax*) 17 gm PO 0800,2100 [facility] Prednisone (Deltasone Tab*) 20 mg PO DAILY [facility] Last Admin: 02/18/17 08:55 Dose: 20 mg Rivaroxaban (Xarelto (*)) 20 mg PO 1700 [facility] Last Admin: 02/17/17 18:20 Dose: 20 mg Throat Lozenges (Chloraseptic Katelin*) 1 katelin PO Q4H PRN PRN Reason: COUGH Last Admin: 02/17/17 08:37 Dose: 1 katelin Tramadol HCl (Ultram*) 50 mg PO Q6H PRN PRN Reason: PAIN Vital Signs - 8 hr 02/18/17 02/18/17 08:00 09:53 Temperature 97.2 F Pulse Rate 112 Respiratory 16 18 Rate Blood Pressure 120/87 (mmHg) O2 Sat by Pulse 97 Oximetry Oxygen Devices in Use Now: None Appearance: Alert, partly up in bed. In fair spirits. Looks comfortable at rest, clearly in pain while getting up to sit on the edge of his bed. Respiratory: Symmetrical Chest Expansion and Respiratory Effort, Clear to Auscultation, Clear to Percussion Cardiovascular: NL Sounds; No Murmurs; No JVD, RRR, No Edema, - Extremities: No Edema, No Clubbing, Cyanosis, - Skin: No Rash or Ulcers, No Nodules or Sclerosis, - Neurological: Alert and Oriented x 3, NL Sensation Result Diagrams: 02/16/17 09:50 02/16/17 09:50 Microbiology and Other Data: Microbiology 02/13/17 20:40 Nasal Screen MRSA (PCR)(LAUREN) - Final Nasal Mrsa Negative Assess/Plan/Problems-Billing Mr Michael is a 66 yo M who has a h/o PE on xarelto, temporal arteritis and lumbar compression fractures who presented to the ER with c/o back pain after a mechanical fall. - Patient Problems (1) Back pain Current Visit: Yes Status: Acute Code(s): M54.9 - DORSALGIA, UNSPECIFIED SNOMED Code(s): 582107606 Comment: Continue to encourage pt to move around. PMRU eval requested. Scheduled APAP ordered, PRN oxycodone 5 mg or tramadol 50 mg. (2) Giant cell arteritis Current Visit: Yes Status: Acute Code(s): M31.6 - OTHER GIANT CELL ARTERITIS SNOMED Code(s): 765353122 Comment: Continue prednisone 20mg daily. ESR 02/19/17. (3) Hypothyroidism Current Visit: Yes Status: Acute Code(s): E03.9 - HYPOTHYROIDISM, UNSPECIFIED SNOMED Code(s): 47557382 Comment: Continue home synthroid dose. (4) History of pulmonary embolism Current Visit: Yes Status: Acute Code(s): Z86.711 - PERSONAL HISTORY OF PULMONARY EMBOLISM SNOMED Code(s): 529923310 Comment: Continue rivaroxaban.
[2017-02-18] MEDS: Polyethylene Glycol 3350* 17 GM PACKET PO SCH ×2 (12:32→20:06)
[2017-02-18] MEDS: Acetaminophen TAB* 325 MG PO SCH ×3 (12:33→20:11)
[2017-02-18] MEDS: Rivaroxaban TAB(*) 20 MG TAB PO SCH (16:45)
[2017-02-18] MEDS: Levofloxacin 500 MG IVPREMIX(* 500 MG/100 ML BAG IVPB SCH (19:55)
[2017-02-18] MEDS: Acetaminophen TAB* 325 MG PO PRN (20:07)
[2017-02-19] MEDS: Levothyroxine TAB* 112 MCG TAB PO SCH (06:14)
[2017-02-19] MEDS: Levothyroxine TAB* 25 MCG TAB PO SCH (06:14)
[2017-02-19] MEDS: Omeprazole CAP* 20 MG PO SCH (06:14)
[2017-02-19] MEDS: Polyethylene Glycol 3350* 17 GM PACKET PO SCH (08:25)
[2017-02-19] MEDS: Benzonatate CAP* 100 MG PO PRN (08:25)
[2017-02-19] MEDS: Atorvastatin* 40 MG TAB PO SCH (08:26)
[2017-02-19] MEDS: Acetaminophen TAB* 325 MG PO SCH ×2 (08:26→13:07)
[2017-02-19] MEDS: predniSONE TAB* 20 MG PO SCH (08:26)
[2017-02-19 09:33] VITALS: BP 145/82
--- NOTE | 2017-02-19 09:55 | DCNOTE ---
Subjective Date of Service: 02/19/17 Interval History: Pain about the same as yesterday. Pt walked on stairs. He is anxious to go home today. Objective Active Medications: Acetaminophen (Tylenol Tab*) 650 mg PO Q6H PRN PRN Reason: FEVER/PAIN Last Admin: 02/16/17 10:26 Dose: 650 mg Acetaminophen (Tylenol Tab*) 650 mg PO QID [facility] Last Admin: 02/19/17 08:26 Dose: 650 mg Atorvastatin Calcium (Lipitor*) 40 mg PO DAILY [facility] Last Admin: 02/19/17 08:26 Dose: 40 mg Benzonatate (Tessalon Cap*) 200 mg PO TID PRN PRN Reason: COUGH Last Admin: 02/19/17 08:25 Dose: 200 mg Cyclobenzaprine HCl (Flexeril Tab*) 10 mg PO TID PRN PRN Reason: SPASMS Last Admin: 02/16/17 10:26 Dose: 10 mg Levofloxacin/Dextrose (Levaquin 500 Mg Ivpremix(*)) 500 mg in 100 mls @ 100 mls /hr IVPB Q24H [facility] Last Admin: 02/18/17 19:55 Dose: 100 mls/hr Levothyroxine Sodium (Synthroid Tab*) 112 mcg PO DAILY@0600 [facility] Last Admin: 02/19/17 06:14 Dose: 112 mcg Levothyroxine Sodium (Synthroid Tab*) 25 mcg PO DAILY@0600 [facility] Last Admin: 02/19/17 06:14 Dose: 25 mcg Magnesium Hydroxide (Milk Of Magnesia Liq*) 30 ml PO Q4H PRN PRN Reason: CONSTIPATION Last Admin: 02/18/17 06:34 Dose: 30 ml Omeprazole (Prilosec Cap*) 20 mg PO DAILY@0600 [facility] Last Admin: 02/19/17 06:14 Dose: 20 mg Oxycodone HCl (Roxycodone Tab*) 5 mg PO Q4H PRN PRN Reason: Pain 1-5 Polyethylene Glycol/Electrolytes (Miralax*) 17 gm PO 0800,2100 [facility] Last Admin: 02/19/17 08:25 Dose: 17 gm Prednisone (Deltasone Tab*) 20 mg PO DAILY [facility] Last Admin: 02/19/17 08:26 Dose: 20 mg Rivaroxaban (Xarelto (*)) 20 mg PO 1700 [facility] Last Admin: 02/18/17 16:45 Dose: 20 mg Throat Lozenges (Chloraseptic Katelin*) 1 katelin PO Q4H PRN PRN Reason: COUGH Last Admin: 02/17/17 08:37 Dose: 1 katelin Tramadol HCl (Ultram*) 50 mg PO Q6H PRN PRN Reason: PAIN Last Admin: 02/19/17 08:26 Dose: 50 mg Vital Signs - 8 hr 02/19/17 02/19/17 02/19/17 03:41 07:37 08:26 Temperature 97.3 F 98.1 F Pulse Rate 88 92 Respiratory 17 16 18 Rate Blood Pressure 135/94 145/82 (mmHg) O2 Sat by Pulse 97 94 Oximetry Oxygen Devices in Use Now: None Appearance: Alert, partly up in bed. In fair spirits. Looks comfortable at rest. Eyes: No Scleral Icterus Extremities: No Edema, No Clubbing, Cyanosis, - Skin: No Rash or Ulcers, No Nodules or Sclerosis, - Neurological: Alert and Oriented x 3, NL Sensation Result Diagrams: 02/16/17 09:50 02/16/17 09:50 Microbiology and Other Data: Microbiology 02/13/17 20:40 Nasal Screen MRSA (PCR)(LAUREN) - Final Nasal Mrsa Negative Assess/Plan/Problems-Billing Mr Michael is a 66 yo M who has a h/o PE on xarelto, temporal arteritis and lumbar compression fractures who presented to the ER with c/o back pain after a mechanical fall. - Patient Problems (1) Back pain Current Visit: Yes Status: Acute Code(s): M54.9 - DORSALGIA, UNSPECIFIED SNOMED Code(s): 534200452 Comment: Continue to encourage pt to move around. Pt will get home services from [facility]. Continue scheduled APAP . Pt states he has enough oxycodone at home. (2) Giant cell arteritis Current Visit: Yes Status: Acute Code(s): M31.6 - OTHER GIANT CELL ARTERITIS SNOMED Code(s): 887650949 Comment: Continue prednisone 20mg daily. ESR 02/19/17 was 43. No change in prednisone dose until he sees Dr. Willis again. (3) Hypothyroidism Current Visit: Yes Status: Acute Code(s): E03.9 - HYPOTHYROIDISM, UNSPECIFIED SNOMED Code(s): 11484494 Comment: TSH 02/19/17 below nl. Reduce levothyroxine to 100 mcg daily. (4) History of pulmonary embolism Current Visit: Yes Status: Acute Code(s): Z86.711 - PERSONAL HISTORY OF PULMONARY EMBOLISM SNOMED Code(s): 470159174 Comment: Continue rivaroxaban.
--- NOTE | 2017-02-19 12:55 | PN ---
Progress Note - Progress Note Date of Service: 02/19/17 Note: Time spent on discharge 55 minutes.
--- NOTE | 2017-02-20 01:11 | DS ---
CC: Dr. Willis * DISCHARGE SUMMARY: DATE OF ADMISSION: DATE OF DISCHARGE: 02/19/17 HISTORY OF PRESENT ILLNESS: This 66-year-old man presented with low back pain after a fall. He has a history of chronic low back pain after a fall with compression fractures of the lumbar spine. He was doing well before admission until when he was walking to his car without his cane, stumbled and fell landing on his right side experiencing immediate severe low back pain and right posterior shoulder pain. He was evaluated with CT scan of the lumbar spine, CT scan of the thoracic spine , chest x-ray, CTA of the chest and thorax. He has no diagnosis other than soft tissue trauma was identified. He had pulmonary emboli on CTA in October of this year, but the last CTA did not show any evidence of pulmonary embolism. He continues on rivaroxaban. He was maintained on his prednisone 20 mg daily for his giant cell arteritis. His sed rate on the day of discharge is 43. His TSH was low on the day of discharge and his levothyroxine dose is being decreased to 100 mcg daily. There was a question of pneumonia for which he was given levofloxacin. He will continue on benzonatate. There really was not much clinical evidence of pneumonia and I believe, he has had an adequate amount of levofloxacin at this time. FINAL DIAGNOSES: 1. Back pain. 2. Giant cell arteritis. 3. Hypothyroidism. 4. History of pulmonary embolism. DISCHARGE MEDICATIONS: 1. Benzonatate 200 mg t.i.d. p.r.n. 2. Levothyroxine 100 mcg daily. 3. Prednisone 20 mg daily. 4. Atorvastatin 40 mg daily. 5. Rivaroxaban 20 mg daily. [id number]/[facility] #: [id number] [facility]
== END 2017-02-19 13:50 | disposition home or self-care (01) | DRG 551 ==
LOC: ED 16:04 → MED 20:07 → OBSVTOIN 02-14 21:45
PROVIDERS: ADMIT Hospitalist; ATTEND Internal Medicine
DX: M54.5 Low back pain (principal); J18.9 Pneumonia, unspecified organism; M31.5 Giant cell arteritis with polymyalgia rheumatica; E03.9 Hypothyroidism, unspecified; M25.511 Pain in right shoulder; W18.39XA Other fall on same level, initial encounter; E78.5 Hyperlipidemia, unspecified; N40.0 Benign prostatic hyperplasia without lower urinary tract symptoms; R09.02 Hypoxemia; M85.88 Other specified disorders of bone density and structure, other site; Z86.711 Personal history of pulmonary embolism; Y92.89 Other specified places as the place of occurrence of the external cause; Z79.52 Long term (current) use of systemic steroids; Z79.899 Other long term (current) drug therapy; Z82.49 Family history of ischemic heart disease and other diseases of the circulatory system; Z87.311 Personal history of (healed) other pathological fracture; Z79.01 Long term (current) use of anticoagulants
CPT/HCPCS: 36415; 71020; 71275; 72128; 72131; 80048; 81003; 84443; 85025; 85027; 85652; 86140; 87641; 93005; A9270-GY; G8978-GP-CN; G8979-GP-CI; J1100; J1956; J2270; J2360; J2405; J3010; J7512; Q9967